=== PATIENT | female | born 1950 | race Caucasian/White ===

== ENCOUNTER 2021-04-09 11:39 | Observation (INO) | payer OTHER ==
--- NOTE | 2021-04-09 12:15 | RAD REPORT ---
EXAM DESCRIPTION: CT - Ct Stroke Brain Wo Cont - 04/09/2021 11:56 am CLINICAL HISTORY: SLURRED SPEECH COMPARISON: <Comparisons>none TECHNIQUE: Axial 5 millimeter thick images of the head were obtained without IV contrast. All CT scans are performed using dose optimization technique as appropriate and may include automated exposure control or mA/KV adjustment according to patient size. FINDINGS: No intracranial hemorrhage is present. In the superior right cerebellum there is a 2.6 jennifer timeter area diminished attenuation suspicious for infarction. There no mass effect in this region. N o other area of suspected acute/subacute infarction. Mild atrophy changes are present. Ventricles are in proportion to the amount of volume loss. No cerebral cortical edema or sulcal effacement. No midl ine shift. No extra-axial fluid collections. Rose matter-white matter differentiation is preserved i n the cerebral hemispheres. Arterial and physiologic calcifications are present. No globe or orbital content acute finding. Visualized portions of the mastoid air cells, paranasal sinuses, and orbits are unremarkable. Mastoid air cells are clear. Coastal thickening or retention cyst in the right maxillary sinus. No acute sin us finding identified. Findings telephoned to Dr Hernandez 12:11 p.m.. IMPRESSION: Nonhemorrhagic infarction changes are evident in the superior right cerebellum. No cerebral hemisphere infarction changes identifiable. No hemorrhage, mass effect or edema.
[2021-04-09 12:23] LABS: Absolute Lymphocytes (CBC) 1.7 K/uL (0.7-4.9); Basophils % 1.2 % (0-1.3); Hematocrit 39.5 % (36.0-45.0); Lymphocytes % 17.5 % (15.3-44.8); MPV 7.1 fL (7.6-11.3); RBC Red Blood Cell Count 4.37 M/uL (3.86-4.86)
[2021-04-09 12:26] LABS: Protime INR 1.04
[2021-04-09 12:32] LABS: BUN Blood Urea Nitrogen 10 mg/dL (7-18); Bicarbonate 28 mmol/L (21-32); Glucose Level 115 mg/dL (74-106); Sodium Level 140 mmol/L (136-145)
[2021-04-09] MEDS ORDERED: NA CHLORIDE 0.9% 1,000 ML ONE (12:42)
[2021-04-09] MEDS ORDERED: ASPIRIN 325 MG TAB ONE (12:42)
[2021-04-09] MEDS ORDERED: FOLIC ACID 5 MG/ML VIAL ONE (12:43)
[2021-04-09] MEDS ORDERED: CLOPIDOGREL 75 MG TABLET ONE (13:21)
[2021-04-09] MEDS ORDERED: ATORVASTATIN 80 MG TAB ONE (13:22)
[2021-04-09] MEDS ORDERED: ACETAMINOPHEN 325 MG TABLET ONE (13:29)
--- NOTE | 2021-04-09 13:40 | RAD REPORT ---
EXAM DESCRIPTION: RAD - Chest Single View - 04/09/2021 12:22 pm CLINICAL HISTORY: Strokechest film COMPARISON: None TECHNIQUE: AP portable chest image was obtained 04/09/2021 12:22 pm . FINDINGS: No focal mass or consolidation. Interstitial pattern is prominent most likely chronic base line interstitial disease. No significant failure or volume overload. Hilar regions within normal ran ge. Heart and vasculature are normal. No measurable pleural effusion and no pneumothorax. No acute leodan ny abnormality seen. No acute aortic findings suspected. IMPRESSION: No acute cardiopulmonary process.
--- NOTE | 2021-04-09 14:26 | RAD REPORT ---
EXAM DESCRIPTION: CT - Neck Angio - 04/09/2021 2:00 pm CLINICAL HISTORY: Slurred Speech, abnormal CT with evidence for right cerebellum CVA TECHNIQUE: During dynamic enhancement using nonionic IV contrast, axial 2 mm thick images of the nec k were obtained. Sagittal and axial reconstruction images were generated using MIP technique and revi ewed. All CT scans are performed using dose optimization technique as appropriate and may include automated exposure control or mA/KV adjustment according to patient size. COMPARISON: CT head same date, CT angio head same date FINDINGS: No aneurysm or vascular malformation identified. No carotid or vertebral dissection. No aortic arch or great vessel origin abnormality seen. Atherosclerotic changes are present without l uminal narrowing. Left vertebral artery origin is tortuous. From origin to skullbase there is no foca l narrowing. The left vertebral artery is dominant. Origin of the smaller right vertebral artery is o bscured by contrast density in the right-sided subclavian and neck base veins. Focal right vertebral abnormality is not suspected. The common carotid and internal carotid arteries from origin to skullba se show no stenosis, vasculitis or other acute finding. Distal vertebral arteries, basilar artery and distal internal carotid arteries detailed in separate C T angio head report. IMPRESSION: CT angio neck examination shows no significant or suspicious finding.
--- NOTE | 2021-04-09 14:34 | RAD REPORT ---
EXAM DESCRIPTION: CT - Head angio - 04/09/2021 2:00 pm CLINICAL HISTORY: SLURRED SPEECH, abnormal CT with evidence for right cerebellum CVA TECHNIQUE: During dynamic enhancement using nonionic IV contrast, axial 1 millimeter thick images of the head were obtained. Sagittal and axial reconstruction images were generated using MIP technique and reviewed. All CT scans are performed using dose optimization technique as appropriate and may include automated exposure control or mA/KV adjustment according to patient size. COMPARISON: CT head same date, CT angio neck same date FINDINGS: From skullbase determination the distal right internal carotid artery shows minimal ather osclerotic plaquing with no luminal narrowing or acute finding. Left internal carotid artery shows at herosclerotic change in the distal vertical petrous portion with approximately 40% stenosis. Addition al atherosclerotic calcifications are present but do not cause significant luminal narrowing. Anterior communicating artery is present. Anterior cerebral arteries show no significant findings. Ri ght middle cerebral artery shows no significant finding. Approximately 50% stenosis is present at the left MCA M1-M2 branch junction. Remainder of the left MCA distribution shows no measurable disease. Patient has bilateral large posterior communicating arteries. No significant atherosclerotic change i dentified in the posterior cerebral arteries. Left vertebral artery is dominant. Distal right vertebral artery is quite small. No dissection or acu te vertebral finding is identifiable. No superior cerebellar artery abnormalities identifiable. Basil ar artery tapers over its length. The bilateral P1 RAILROAD BRAKEMAN segments are absent as a normal variant. The d ominant bilateral posterior communicating arteries supply the RAILROAD BRAKEMAN circulation. Major venous sinuses are patent. IMPRESSION: CT angio head examination shows atherosclerotic changes with 40-50% stenosis in the lef t internal carotid artery and left middle cerebral artery, neither of which would be involved in the right cerebellum suspected CVA. No posterior circulation vascular abnormality seen to explain the suspected cerebellum CVA.
--- NOTE | 2021-04-09 14:49 | ER ---
Nurse's Notes [facility] Name: Karin Ayala Age: 71 yrs Sex: Female : 1950 Arrival Date: 04/09/2021 Time: 11:40 Bed 16 Private MD: Diagnosis: Cerebral infarction, unspecified Presentation: 04/09 11:50 Chief complaint: Patient states: went to bed last night at 9pm, woke up 0630 with iw slurred speech , felt numbness and pain in right arm and leg, was very dizzy and vomiting. Coronavirus screen: vomiting. Client presents with at least one sign or symptom that may indicate coronavirus-19. Ebola Screen: Patient negative for fever greater than or equal to 101.5 degrees Fahrenheit, and additional compatible Ebola Virus Disease symptoms Patient denies exposure to infectious person. Patient denies travel to an Ebola-affected area in the 21 days before illness onset. No symptoms or risks identified at this time. Initial Sepsis Screen: Does the patient meet any 2 criteria? No. Patient's initial sepsis screen is negative. Does the patient have a suspected source of infection? No. Patient's initial sepsis screen is negative. Risk Assessment: Do you want to hurt yourself or someone else? Patient reports no desire to harm self or others. Onset of symptoms. 11:50 Method Of Arrival: Wheelchair iw 11:50 Acuity: RUDDY 2 iw 11:53 The patients blood glucose was checked before arriving to the hospital and was found to iw be normal. Triage Assessment: 12:21 The onset of the patients symptoms was April 08, 2021 at 21:00. Headache History: jd3 Denies prior headaches. General: Appears uncomfortable, Behavior is calm, cooperative, appropriate for age. Pain: Complains of pain in head Pain at worst was 10 out of 10 on a pain scale. Pain began gradually, Also complains of no other associated symptoms. Neuro: Reports weakness in right arm and right leg slurred speach. Stroke Activation: Symptom onset > 6 hours Physician: Stroke Attending; Name: ; Notified At: ; Arrived At: Physician: Chief Stroke Resident; Name: ; Notified At: ; Arrived At: Physician: Stroke Resident; Name: ; Notified At: ; Arrived At: Physician: ED Attending; Name: ; Notified At: ; Arrived At: Physician: ED Resident; Name: ; Notified At: ; Arrived At: Historical: - Allergies: 11:54 No Known Allergies; iw - Home Meds: 11:54 None [Active]; iw - PMHx: 11:54 None; iw - PSHx: 11:54 shoulder; iw - Immunization history:: Client reports having NOT received the Covid vaccine. - Social history:: Smoking status: Patient reports the use of cigarette tobacco products, smokes one pack cigarettes per day. Screenin:21 Abuse screen: Denies threats or abuse. Nutritional screening: No deficits noted. jd3 Tuberculosis screening: No symptoms or risk factors identified. Fall Risk IV access (20 points). Ambulatory Aid- None/Bed Rest/Nurse Assist (0 pts). Gait- Normal/Bed Rest/Wheelchair (0 pts) Mental Status- Oriented to own ability (0 pts). Total Espinoza Fall Scale indicates No Risk (0-24 pts). Assessment: 11:45 VAN Scoring: Arm Drift: Patients demonstrates NO arm weakness. Patient is VAN Negative. jd3 Patient has been NPO before screening. The patient is alert, and able to follow commands. The patient exhibits slurred or garbled speech. Provider notified of the indication for Speech Therapy consult. The patient is not exhibiting difficulty speaking. The patient does not exhibit difficulty understanding words. The patient is able to swallow own secretions with no drooling or need for suction. Patient tolerated one teaspoon of water. No drooling, immediate coughing, gurgling, or clearing of the throat was noted. The patient tolerated 90mL of water. No drooling, immediate coughing, gurgling, or clearing of the throat was noted. The patient passed the bedside swallow screening. Oral medications may be given as ordered. Contact Physician for further diet orders. Provider notified of bedside swallow screening results: Anshul Perez [employer]. T-PA (Activase) Screening: Contraindications: Patient reports onset of signs and symptoms of stroke greater than 6 hours ago:. General: Appears uncomfortable, Behavior is calm, cooperative, appropriate for age. Pain: Complains of pain in head Quality of pain is described as aching, pressure. Neuro: Level of Consciousness is awake, alert, obeys commands, Oriented to person, place, time, situation, Filter Machine Operator are equal bilaterally Moves all extremities. Full function Speech is slurred, Facial symmetry appears normal, Pupils are PERRLA, Intact. Cardiovascular: Capillary refill < 3 seconds Patient's skin is warm and dry. Rhythm is regular. Respiratory: Airway is patent Respiratory effort is even, unlabored, Respiratory pattern is regular, symmetrical, Denies cough, shortness of breath. GI: No signs and/or symptoms were reported involving the gastrointestinal system. : No signs and/or symptoms were reported regarding the genitourinary system. EENT: No signs and/or symptoms were reported regarding the EENT system. Derm: Skin is intact, Skin is dry, Skin is normal, Skin temperature is warm. Musculoskeletal: Circulation, motion, and sensation intact. Range of motion: intact in all extremities. 12:50 Reassessment: No changes from previously documented assessment. Patient and/or family jd3 updated on plan of care and expected duration. Pain level reassessed. Patient is alert, oriented x 3, equal unlabored respirations, skin warm/dry/pink. 13:33 Reassessment: Patient and/or family updated on plan of care and expected duration. Pain jd3 level reassessed. Patient is alert, oriented x 3, equal unlabored respirations, skin warm/dry/pink. Patient states feeling better. 14:30 Reassessment: No changes from previously documented assessment. Patient and/or family jd3 updated on plan of care and expected duration. Pain level reassessed. Patient is alert, oriented x 3, equal unlabored respirations, skin warm/dry/pink. 15:19 Reassessment: No changes from previously documented assessment. Patient and/or family jd3 updated on plan of care and expected duration. Pain level reassessed. Patient is alert, oriented x 3, equal unlabored respirations, skin warm/dry/pink. Vital Signs: 11:53 BP 178 / 96; Pulse 86; Resp 20; Temp 98.2; Pulse Ox 94% ; jd3 12:51 BP 154 / 73; Pulse 89; Resp 19 S; Pulse Ox 97% on R/A; jd3 13:33 BP 175 / 67; Pulse 87; Resp 17 S; Pulse Ox 97% on R/A; jd3 15:20 BP 164 / 73; Pulse 85; Resp 17 S; Pulse Ox 98% on R/A; jd3 NIH Stroke Scale Scores: 11:45 NIHSS Score: 1 jd3 12:06 NIHSS Score: 1 pm1 15:15 NIHSS Score: 0 jd3 ED Course: 11:40 Patient arrived in ED. as 11:46 Gianfranco Lazo, LEVAR is Primary Nurse. jd3 11:50 Arm band placed on Patient placed in an exam room, on a stretcher. ll1 11:50 Inserted saline lock: 20 gauge in right antecubital area, using aseptic technique. jd3 Blood collected. 11:52 Anshul Perez NP is PHCP. pm1 11:52 Abdulaziz Hernandez MD is Attending Physician. pm1 11:53 Triage completed. iw 11:56 CT Stroke Brain w/o Contrast In Process Unspecified. EDMS 12:21 Patient has correct armband on for positive identification. Bed in low position. Call jd3 light in reach. Side rails up X2. Adult w/ patient. awake overnight monitor on. Pulse ox on. NIBP on. 12:22 Stroke CXR 1 View In Process Unspecified. EDMS 14:[address] In Process Unspecified. EDMS 14:00 CT Neck Angio In Process Unspecified. EDMS 14:48 Rebel Selby DO is Hospitalizing Provider. pm1 16:16 No provider procedures requiring assistance completed. Patient admitted, IV remains in jd3 place. Administered Medications: 12:49 Drug: foLIC Acid 1 mg Route: IVPB; Site: right antecubital; jd3 13:40 Follow up: Response: No adverse reaction; IV Status: Completed infusion jd3 12:50 Drug: Aspirin 325 mg Route: PO; jd3 13:50 Follow up: Response: No adverse reaction jd3 12:50 Drug: NS 0.9% 1000 ml Route: IV; Rate: 75 ml/hr; Site: right antecubital; jd3 16:15 Follow up: Response: No adverse reaction; IV Status: Infusion continued upon transfer jd3 13:25 Not Given (Physician Discretion): PlaVIX (clopidogrel) 75 mg PO once pm1 13:32 Drug: Atorvastatin 80 mg Route: PO; jd3 14:30 Follow up: Response: No adverse reaction jd3 13:32 Drug: Tylenol 650 mg Route: PO; jd3 14:30 Follow up: Response: No adverse reaction jd3 Point of Care Testing: Blood Glucose: 11:55 Blood Glucose: 107 mg/dL; iw Ranges: Outcome: 14:48 Decision to Hospitalize by Provider. pm1 16:16 Admitted to Med/surg accompanied by tech, via wheelchair, room 202, with chart, Report dominic called to nurse for room 202 16:16 Condition: stable 16:16 Instructed on the need for admit, Demonstrated understanding of instructions. 16:17 Patient left the ED. dominic NIH Stroke Scale - NIH Stroke Score Date: 04/09/2021 Time: 11:45 Total Score = 1 1a. Level of Consciousness (LOC) - 0(Alert) 1b. Level of Consciousness (LOC) (Month \T\ Age) - 0(Both) 1c. LOC Commands (Open \T\ Closes Eyes/Bail Bondsman) - 0(Both) 2. Best Gaze (Lateral Gaze Paresis) - 0(Normal) 3. Visual Field Loss - 0(No visual loss) 4. Facial Palsy - 0(Normal) 5a. Left Arm: Motor (10-second hold) - 0(No drift) 5b. Right Arm: Motor (10-second hold) - 0(No drift) 6a. Left Leg: Motor (5-second hold - always test supine) - 0(No drift) 6b. Right Leg: Motor (5-second hold - always test supine) - 0(No drift) 7. Limb Ataxia (finger/nose \T\ heel/gallegos - test with eyes open) - 0(Absent) 8. Sensory Loss (pinprick arms/legs/face) - 0(Normal) 9. Best Language: Aphasia (description/naming/reading) - 0(No aphasia) 10. Dysarthria (speech clarity - read or repeat words) - 1(Mild to Moderate) 11. Extinction and Inattention (visual/tactile/auditory/spatial/personal) - 0(No abnormality) Initials: dominic NIH Stroke Scale - NIH Stroke Score Date: 04/09/2021 Time: 12:06 Total Score = 1 1a. Level of Consciousness (LOC) - 0(Alert) 1b. Level of Consciousness (LOC) (Month \T\ Age) - 0(Both) 1c. LOC Commands (Open \T\ Closes Eyes/Bail Bondsman) - 0(Both) 2. Best Gaze (Lateral Gaze Paresis) - 0(Normal) 3. Visual Field Loss - 0(No visual loss) 4. Facial Palsy - 0(Normal) 5a. Left Arm: Motor (10-second hold) - 0(No drift) 5b. Right Arm: Motor (10-second hold) - 0(No drift) 6a. Left Leg: Motor (5-second hold - always test supine) - 0(No drift) 6b. Right Leg: Motor (5-second hold - always test supine) - 0(No drift) 7. Limb Ataxia (finger/nose \T\ heel/gallegos - test with eyes open) - 0(Absent) 8. Sensory Loss (pinprick arms/legs/face) - 0(Normal) 9. Best Language: Aphasia (description/naming/reading) - 0(No aphasia) 10. Dysarthria (speech clarity - read or repeat words) - 1(Mild to Moderate) 11. Extinction and Inattention (visual/tactile/auditory/spatial/personal) - 0(No abnormality) Initials: pm1 NIH Stroke Scale - NIH Stroke Score Date: 04/09/2021 Time: 15:15 Total Score = 0 1a. Level of Consciousness (LOC) - 0(Alert) 1b. Level of Consciousness (LOC) (Month \T\ Age) - 0(Both) 1c. LOC Commands (Open \T\ Closes Eyes/Bail Bondsman) - 0(Both) 2. Best Gaze (Lateral Gaze Paresis) - 0(Normal) 3. Visual Field Loss - 0(No visual loss) 4. Facial Palsy - 0(Normal) 5a. Left Arm: Motor (10-second hold) - 0(No drift) 5b. Right Arm: Motor (10-second hold) - 0(No drift) 6a. Left Leg: Motor (5-second hold - always test supine) - 0(No drift) 6b. Right Leg: Motor (5-second hold - always test supine) - 0(No drift) 7. Limb Ataxia (finger/nose \T\ heel/gallegos - test with eyes open) - 0(Absent) 8. Sensory Loss (pinprick arms/legs/face) - 0(Normal) 9. Best Language: Aphasia (description/naming/reading) - 0(No aphasia) 10. Dysarthria (speech clarity - read or repeat words) - 0(Normal) 11. Extinction and Inattention (visual/tactile/auditory/spatial/personal) - 0(No abnormality) Initials: jd3 Signatures: Dispatcher [employer] Loren Juárez Irene, RN RN iw Anshul Perez, GIRMA [employer] pm1 Gianfranco Lazo RN RN jd3 Alyssa Steele RN RN ll1 Corrections: (The following items were deleted from the chart) 12:30 12:14 Inserted saline lock: 20 gauge in right antecubital area, using aseptic jd3 technique. Blood collected. jd3 12:51 11:53 Pulse 86bpm; Resp 20bpm; Pulse Ox 94%; Temp 98.2F; iw jd3 12:51 11:45 General: Appears in no apparent distress. uncomfortable, Behavior is jd3 calm, cooperative, appropriate for age, jd3
--- NOTE | 2021-04-09 14:49 | EDPHYS ---
Physician Documentation [facility] Name: Karin Ayala Age: 71 yrs Sex: Female : 1950 Arrival Date: 04/09/2021 Time: 11:40 Bed 16 Private MD: ED Physician Abdulaziz Hernandez HPI: 04/09 12:06 This 71 yrs old Female presents to ER via Wheelchair with complaints of Headache, pm1 Slurred Speech, Vomit x 1, Numbness - r side. 12:06 The patient presents to the emergency department with a speech or higher order brain pm1 function problem, slurred speech, difficult walking, the patient is off balance, paresthesias of the right side. Onset: The symptoms/episode began/occurred this morning, at 06:00. 12:06 Context: occurred at home, occurred while the patient was was sleeping. Woke up with pm1 the symptoms, slurred speech, headache, and difficulty walking. Associated signs and symptoms: Pertinent negatives: fever, chest pain, shortness of breath. Severity of symptoms: in the emergency department the symptoms have improved. Patient's baseline: Neuro: alert and fully oriented, Motor: no deficits, Ambulation: walks without assistance, Speech: normal. Current symptoms: headache, slurred speech per son. The patient has not experienced similar symptoms in the past. The patient has not recently seen a physician, and does not have an established primary care provider. Patient woke up this AM at 0600 with slurred speech, headache, generalized weakness, right sided numbness, and difficulty walking. Patient went to bed last night at 2100 without any complaints or concerns. Historical: - Allergies: 11:54 No Known Allergies; iw - Home Meds: 11:54 None [Active]; iw - PMHx: 11:54 None; iw - PSHx: 11:54 shoulder; iw - Immunization history:: Client reports having NOT received the Covid vaccine. - Social history:: Smoking status: Patient reports the use of cigarette tobacco products, smokes one pack cigarettes per day. ROS: 12:06 Constitutional: Negative for fever, chills, and weight loss, Cardiovascular: Negative pm1 for chest pain, palpitations, and edema, Respiratory: Negative for shortness of breath, cough, wheezing, and pleuritic chest pain. 12:06 Back: Negative for injury and pain, MS/Extremity: Negative for injury and deformity, Skin: Negative for injury, rash, and discoloration. 12:06 Abdomen/GI: Positive for vomiting, x1, Negative for abdominal pain, nausea, diarrhea. 12:06 Neuro: Positive for headache, of the Right sided weakness, Negative for numbness, tingling. 12:06 All other systems are negative. Exam: 12:06 Constitutional: This is a well developed, well nourished patient who is awake, alert, pm1 and in no acute distress. Head/Face: Normocephalic, atraumatic. Eyes: Pupils equal round and reactive to light, extra-ocular motions intact. Lids and lashes normal. Conjunctiva and sclera are non-icteric and not injected. Cornea within normal limits. Periorbital areas with no swelling, redness, or edema. 12:06 Neck: Trachea midline, no thyromegaly or masses palpated, and no cervical lymphadenopathy. Supple, full range of motion without nuchal rigidity, or vertebral point tenderness. No Meningismus. 12:06 Back: No spinal tenderness. No costovertebral tenderness. Full range of motion. Skin: Warm, dry with normal turgor. Normal color with no rashes, no lesions, and no evidence of cellulitis. MS/ Extremity: Pulses equal, no cyanosis. Neurovascular intact. Full, normal range of motion. 12:06 ENT: Exam is negative for acute changes, Mouth: no acute changes, Lips: normal, moist, Oral mucosa: normal, pink and intact, moist. 12:06 Cardiovascular: Exam negative for acute changes, Rate: normal, Rhythm: regular, Pulses: no pulse deficits are appreciated, Edema: is not appreciated. 12:06 Respiratory: Exam negative for acute changes, respiratory distress, shortness of breath, Breath sounds: are clear throughout. 12:06 Neuro: Orientation: is normal, to person, place, time, situation, Mentation: is normal, Cerebellar function: normal finger to nose testing, Motor: moves all fours, strength is 5/5 in all extremities, Sensation: no obvious gross deficits. Vital Signs: 11:53 BP 178 / 96; Pulse 86; Resp 20; Temp 98.2; Pulse Ox 94% ; jd3 12:51 BP 154 / 73; Pulse 89; Resp 19 S; Pulse Ox 97% on R/A; jd3 13:33 BP 175 / 67; Pulse 87; Resp 17 S; Pulse Ox 97% on R/A; jd3 15:20 BP 164 / 73; Pulse 85; Resp 17 S; Pulse Ox 98% on R/A; jd3 NIH Stroke Scale Scores: 11:45 NIHSS Score: 1 jd3 12:06 NIHSS Score: 1 pm1 15:15 NIHSS Score: 0 jd3 MDM: 11:52 Patient medically screened. pm1 12:01 ED course: Not a TPA candidate due to unknown onset of symptoms. pm1 12:28 Data reviewed: vital signs. pm1 12:36 Counseling: I had a detailed discussion with the patient and/or guardian regarding: the pm1 historical points, exam findings, and any diagnostic results supporting the discharge/admit diagnosis, radiology results, the need for further work-up and treatment in the hospital. 12:50 Physician consultation: Ayden Altman MD was called at 12:28, regarding consult, pm1 patient's condition, and will see patient tomorrow, would like further tests performed, MRI, would like medications started, Aspirin, Plavix, statin. 13:13 Physician consultation: Rebel Selby DO was contacted at 13:13, regarding admission, pm1 patient's condition, would like further tests performed, CTA head. 04/09 11:51 Order name: Basic Metabolic Panel; Complete Time: 15:11 eb 04/09 11:51 Order name: CBC with Diff; Complete Time: 12:30 eb 04/09 11:51 Order name: Protime (+inr); Complete Time: 12:30 eb 04/09 11:51 Order name: Ptt, Activated; Complete Time: 12:30 eb 04/09 12:01 Order name: Glucose, Ancillary Testing; Complete Time: 12:06 EDMS 04/09 12:05 Order name: Troponin (emerg Dept Use Only) pm1 04/09 11:51 Order name: CT Stroke Brain w/o Contrast; Complete Time: 12:23 eb 04/09 11:51 Order name: Stroke CXR 1 View; Complete Time: 13:54 eb 04/09 13:13 Order name: Head Angio CT; Complete Time: 14:40 pm1 04/09 13:24 Order name: CT Neck Angio; Complete Time: 14:40 pm1 04/09 14:34 Order name: Troponin I; Complete Time: 15:11 EDMS 04/09 14:37 Order name: SARS-COV-2 RT PCR; Complete Time: 16:37 EDMS 04/09 11:51 Order name: EKG; Complete Time: 11:52 eb 04/09 11:51 Order name: Accucheck; Complete Time: 12:14 eb 04/09 11:51 Order name: Cardiac monitoring; Complete Time: 12:14 eb 04/09 11:51 Order name: EKG - Nurse/Tech; Complete Time: 12:14 eb 04/09 11:51 Order name: IV Saline Lock; Complete Time: 12:14 eb 04/09 11:51 Order name: Labs collected and sent; Complete Time: 12:14 eb 04/09 11:51 Order name: NPO; Complete Time: 12:14 eb 04/09 11:51 Order name: O2 Per Protocol; Complete Time: 12:14 eb 04/09 11:51 Order name: O2 Sat Monitoring; Complete Time: 12:14 eb 04/09 11:51 Order name: Stroke Swallow Screen; Complete Time: 12:14 eb Administered Medications: 12:49 Drug: foLIC Acid 1 mg Route: IVPB; Site: right antecubital; jd3 13:40 Follow up: Response: No adverse reaction; IV Status: Completed infusion jd3 12:50 Drug: Aspirin 325 mg Route: PO; jd3 13:50 Follow up: Response: No adverse reaction jd3 12:50 Drug: NS 0.9% 1000 ml Route: IV; Rate: 75 ml/hr; Site: right antecubital; jd3 16:15 Follow up: Response: No adverse reaction; IV Status: Infusion continued upon transfer jd3 13:25 Not Given (Physician Discretion): PlaVIX (clopidogrel) 75 mg PO once pm1 13:32 Drug: Atorvastatin 80 mg Route: PO; jd3 14:30 Follow up: Response: No adverse reaction jd3 13:32 Drug: Tylenol 650 mg Route: PO; jd3 14:30 Follow up: Response: No adverse reaction jd3 Point of Care Testing: Blood Glucose: 11:55 Blood Glucose: 107 mg/dL; iw Ranges: Critical Glucose Levels:Adult <50 mg/dl or >400 mg/dl <40 mg/dl or >180 mg/dl Disposition: 18:09 Co-signature as Attending Physician, Abdulaziz Hernandez MD PA/DIRECTOR DRUG's history reviewed, ma2 patient interviewed, and examined. Disposition Summary: 04/09/21 14:48 Hospitalization Ordered Hospitalization Status: Observation pm1 Provider: Rebel Selby pm1 Location: Telemetry/MedSurg (observation) pm1 Condition: Stable pm1 Problem: new pm1 Symptoms: have improved pm1 Bed/Room Type: Standard pm1 Room Assignment: (04/09/21 15:44) eb Diagnosis - Cerebral infarction, unspecified pm1 Forms: - Medication Reconciliation Form pm1 - SBAR form pm1 NIH Stroke Scale - NIH Stroke Score Date: 04/09/2021 Time: 11:45 Total Score = 1 1a. Level of Consciousness (LOC) - 0(Alert) 1b. Level of Consciousness (LOC) (Month \T\ Age) - 0(Both) 1c. LOC Commands (Open \T\ Closes Eyes/Interface Engineer) - 0(Both) 2. Best Gaze (Lateral Gaze Paresis) - 0(Normal) 3. Visual Field Loss - 0(No visual loss) 4. Facial Palsy - 0(Normal) 5a. Left Arm: Motor (10-second hold) - 0(No drift) 5b. Right Arm: Motor (10-second hold) - 0(No drift) 6a. Left Leg: Motor (5-second hold - always test supine) - 0(No drift) 6b. Right Leg: Motor (5-second hold - always test supine) - 0(No drift) 7. Limb Ataxia (finger/nose \T\ heel/gallegos - test with eyes open) - 0(Absent) 8. Sensory Loss (pinprick arms/legs/face) - 0(Normal) 9. Best Language: Aphasia (description/naming/reading) - 0(No aphasia) 10. Dysarthria (speech clarity - read or repeat words) - 1(Mild to Moderate) 11. Extinction and Inattention (visual/tactile/auditory/spatial/personal) - 0(No abnormality) Initials: jd3 NIH Stroke Scale - NIH Stroke Score Date: 04/09/2021 Time: 12:06 Total Score = 1 1a. Level of Consciousness (LOC) - 0(Alert) 1b. Level of Consciousness (LOC) (Month \T\ Age) - 0(Both) 1c. LOC Commands (Open \T\ Closes Eyes/Interface Engineer) - 0(Both) 2. Best Gaze (Lateral Gaze Paresis) - 0(Normal) 3. Visual Field Loss - 0(No visual loss) 4. Facial Palsy - 0(Normal) 5a. Left Arm: Motor (10-second hold) - 0(No drift) 5b. Right Arm: Motor (10-second hold) - 0(No drift) 6a. Left Leg: Motor (5-second hold - always test supine) - 0(No drift) 6b. Right Leg: Motor (5-second hold - always test supine) - 0(No drift) 7. Limb Ataxia (finger/nose \T\ heel/gallegos - test with eyes open) - 0(Absent) 8. Sensory Loss (pinprick arms/legs/face) - 0(Normal) 9. Best Language: Aphasia (description/naming/reading) - 0(No aphasia) 10. Dysarthria (speech clarity - read or repeat words) - 1(Mild to Moderate) 11. Extinction and Inattention (visual/tactile/auditory/spatial/personal) - 0(No abnormality) Initials: pm1 NIH Stroke Scale - NIH Stroke Score Date: 04/09/2021 Time: 15:15 Total Score = 0 1a. Level of Consciousness (LOC) - 0(Alert) 1b. Level of Consciousness (LOC) (Month \T\ Age) - 0(Both) 1c. LOC Commands (Open \T\ Closes Eyes/Interface Engineer) - 0(Both) 2. Best Gaze (Lateral Gaze Paresis) - 0(Normal) 3. Visual Field Loss - 0(No visual loss) 4. Facial Palsy - 0(Normal) 5a. Left Arm: Motor (10-second hold) - 0(No drift) 5b. Right Arm: Motor (10-second hold) - 0(No drift) 6a. Left Leg: Motor (5-second hold - always test supine) - 0(No drift) 6b. Right Leg: Motor (5-second hold - always test supine) - 0(No drift) 7. Limb Ataxia (finger/nose \T\ heel/gallegos - test with eyes open) - 0(Absent) 8. Sensory Loss (pinprick arms/legs/face) - 0(Normal) 9. Best Language: Aphasia (description/naming/reading) - 0(No aphasia) 10. Dysarthria (speech clarity - read or repeat words) - 0(Normal) 11. Extinction and Inattention (visual/tactile/auditory/spatial/personal) - 0(No abnormality) Initials: jd3 Signatures: Dispatcher [employer] EDMS Bibiana Burrell RN RN iw Anshul Perez, DIRECTOR DRUG DIRECTOR DRUG pm1 Gianfranco Lazo RN RN jd3 Abdulaziz Hernandez MD MD ok2 Cindy Borges Corrections: (The following items were deleted from the chart) 14:13 12:06 The patient presents to the emergency department with a speech or higher pm1 order brain function problem, slurred speech, pm1 14:34 12:06 Troponin (Emerg Dept Use Only) ordered. EDMS EDMS 14:37 14:09 CORONAVIRUS+[email or web address] ordered. EDMS EDMS 15:44 14:48 pm1 eb
[2021-04-09 14:59] LABS: Troponin I < 0.02 ng/mL (0.0-0.045)
--- NOTE | 2021-04-09 15:52 | P.HP ---
Certification for Inpatient Patient admitted to: Observation Patient will require the following post-hospital care: Other (Home health with PT) Practitioner: I am a practitioner with admitting privileges, knowledge of patient current condition, hospital course, and medical plan of care. Services: Services provided to patient in accordance with Admission requirements found in Title 42 Section 412.3 of the Code of Federal Regulations Patient History Date of Service: 04/09/21 Primary Care Provider: None Reason for admission: Slurred speech, ataxia and dizziness History of Present Illness: 71-year-old female with history of tobacco abuse with no prior major medical problems. Patient presented to the emergency room with dizziness, headaches and slurred speech. Patient reports that she was normal at 9 PM last night when she went to bed. She woke up around 630 this morning. She reported some dizziness, headaches and slurred speech. She went back to bed and woke up around 1030. She continued to have some difficulty with walking. Patient came to the ER for further evaluation. In the ER patient was evaluated. CT scan revealed right superior cerebellar nonhemorrhagic CVA. CBC unremarkable. BMP reviewed. Troponin unremarkable. Chest x-ray unremarkable. ER discussed case with neurology. Recommendation was for the patient to be admitted for further evaluation. When I saw the patient in ER, patient was able to talk appropriately. No significant dysarthria noted. She reported headaches improved. She denied any nausea, vomiting, chest pain or shortness of breath. Patient does smoke heavily. Patient does not take aspirin. Home medications list reviewed: Yes - Past Medical/Surgical History Diabetic: No -: Chronic right shoulder pain -: Tobacco abuse -: Right shoulder repair -: Right hand surgery -: Carpal tunnel surgery Psychosocial/ Personal History: Patient is - Family History Family History: Reviewed- Non-Contributory - Social History Smoking Status: Heavy Tobacco smoker (>10 cigarettes/day) Counseled patient to stop smoking for: less than 10 minutes Smoking therapy provided: Yes Patient receptive to therapy: Yes Alcohol use: No CD- Drugs: No Caffeine use: No Place of Residence: Home Review of Systems General: As per HPI Eyes: Unremarkable ENT: Unremarkable Respiratory: Unremarkable Cardiovascular: Light Headedness, As per HPI Gastrointestinal: Unremarkable Genitourinary: Unremarkable Musculoskeletal: Unremarkable Integumentary: Unremarkable Neurological: As per HPI Lymphatics: Unremarkable Physical Examination - Studies Laboratory Data (last 24 hrs) 04/09/21 12:09: PT 12.0, INR 1.04, APTT 31.1 04/09/21 12:09: WBC 9.50, Hgb 13.3, Hct 39.5, Plt Count 370 04/09/21 12:09: Sodium 140, Potassium 4.0, BUN 10, Creatinine 0.54 L, Glucose 115 H, Troponin I < 0.02 Assessment and Plan - Plan COVID: Negative CT Head: COMPARISON: <Comparisons>none TECHNIQUE: Axial 5 millimeter thick images of the head were obtained without IV contrast. All CT scans are performed using dose optimization technique as appropriate and may include automated exposure control or mA/KV adjustment according to patient size. FINDINGS: No intracranial hemorrhage is present. In the superior right cerebellum there is a 2.6 centimeter area diminished attenuation suspicious for infarction. There no mass effect in this region. No other area of suspected acute/subacute infarction. Mild atrophy changes are present. Ventricles are in proportion to the amount of volume loss. No cerebral cortical edema or sulcal effacement. No midline shift. No extra-axial fluid collections. Rose matter- white matter differentiation is preserved in the cerebral hemispheres. Arterial and physiologic calcifications are present. No globe or orbital content acute finding. Visualized portions of the mastoid air cells, paranasal sinuses, and orbits are unremarkable. Mastoid air cells are clear. Coastal thickening or retention cyst in the right maxillary sinus. No acute sinus finding identified. IMPRESSION: Nonhemorrhagic infarction changes are evident in the superior right cerebellum. No cerebral hemisphere infarction changes identifiable. No hemorrhage, mass effect or edema. CTA Head: COMPARISON: CT head same date, CT angio neck same date FINDINGS: From skullbase determination the distal right internal carotid artery shows minimal atherosclerotic plaquing with no luminal narrowing or acute finding. Left internal carotid artery shows atherosclerotic change in the distal vertical petrous portion with approximately 40% stenosis. Additional atherosclerotic calcifications are present but do not cause significant luminal narrowing. Anterior communicating artery is present. Anterior cerebral arteries show no significant findings. Right middle cerebral artery shows no significant finding. Approximately 50% stenosis is present at the left MCA M1-M2 branch junction. Remainder of the left MCA distribution shows no measurable disease. Patient has bilateral large posterior communicating arteries. No significant atherosclerotic change identified in the posterior cerebral arteries. Left vertebral artery is dominant. Distal right vertebral artery is quite small. No dissection or acute vertebral finding is identifiable. No superior cerebellar artery abnormalities identifiable. Basilar artery tapers over its length. The bilateral P1 FUR MATCHER segments are absent as a normal variant. The dominant bilateral posterior communicating arteries supply the FUR MATCHER circulation. Major venous sinuses are patent. IMPRESSION: CT angio head examination shows atherosclerotic changes with 40- 50% stenosis in the left internal carotid artery and left middle cerebral artery, neither of which would be involved in the right cerebellum suspected CVA. No posterior circulation vascular abnormality seen to explain the suspected cerebellum CVA. CTA Neck: COMPARISON: CT head same date, CT angio head same date FINDINGS: No aneurysm or vascular malformation identified. No carotid or vertebral dissection. No aortic arch or great vessel origin abnormality seen. Atherosclerotic changes are present without luminal narrowing. Left vertebral artery origin is tortuous. From origin to skullbase there is no focal narrowing. The left vertebral artery is dominant. Origin of the smaller right vertebral artery is obscured by contrast density in the right-sided subclavian and neck base veins. Focal right vertebral abnormality is not suspected. The common carotid and internal carotid arteries from origin to skullbase show no stenosis, vasculitis or other acute finding. Distal vertebral arteries, basilar artery and distal internal carotid arteries detailed in separate CT angio head report. IMPRESSION: CT angio neck examination shows no significant or suspicious finding. CXR: COMPARISON: None TECHNIQUE: AP portable chest image was obtained 04/09/2021 12:22 pm . FINDINGS: No focal mass or consolidation. Interstitial pattern is prominent most likely chronic baseline interstitial disease. No significant failure or volume overload. Hilar regions within normal range. Heart and vasculature are normal. No measurable pleural effusion and no pneumothorax. No acute bony abnormality seen. No acute aortic findings suspected. IMPRESSION: No acute cardiopulmonary process. Physical Exam: GENERAL: The patient is a well-developed, well-nourished, in no apparent distress. Alert and oriented x3. VITAL SIGNS: Reviewed HEENT: Head is normocephalic and atraumatic. Extraocular muscles are intact. Pupils are equal, round, and reactive to light and accommodation. Nares appeared normal. Mouth is well hydrated and without lesions. Mucous membranes are moist. Patient was able to talk appropriately. No significant dysarthria. NECK: Supple. No carotid bruits. No lymphadenopathy or thyromegaly. LUNGS: Clear to auscultation. No crackles or wheezes are heard. HEART: Regular rate and rhythm, no appreciable gallops, rubs, murmurs or extra heart sounds ABDOMEN: Soft, nontender, and nondistended. Positive bowel sounds. No hepatosplenomegaly was noted. EXTREMITIES: Without any cyanosis, clubbing, rash, lesions or peripheral edema. NEUROLOGIC: The patient is oriented to person, place and time. Strength and sensation are grossly intact. Face is symmetric. SKIN: Normal color, turgor and temperature. No ulcerations or rashes noted. 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 Case discussed with neurology. Will start aspirin 81 mg daily, folic acid 1 mg daily, and Lipitor 40 mg daily. Blood pressure stable. Will obtain echocardiogram, carotid Doppler and stroke protocol MRI to further evaluate. DVT prophylaxisLovenox in place. Speech, occupational therapy, and physical therapy consulted. Await recommendations. Patient appears close to baseline. Anticipate improvement over the next 24 hours. Likely home with home health and physical therapy at discharge. Social work consulted to help with this. Nurses to evaluate swallowing. If successful will start [place] [employer] diet. I will turn the service over to the hospitalist team tomorrow. I will go plan of care with him. Tobacco abuse: Tobacco cessation addressed in detail. Will provide nicotine patch. Suspect underlying COPD: Suspect underlying COPD. Will start Dulera and albuterol. This can be continued at discharge. Hyperlipidemia: We will check fasting lipid panel. We will start Lipitor 40 mg in light of CVA. Carotid arterial disease with 40 to 50% stenosis to the left internal carotid artery and left middle cerebral artery: We will continue with above plan of care. Await stroke protocol MRI and carotid Doppler. Code Status: Full Code DVT prophylaxis: Lovenox Advanced Care Planning-30 minutes: Spoke with patient and son. If patient is doing well they would prefer home health and physical therapy at discharge. Discharge Plan: Home Plan to discharge in: 48 Hours - Advance Directives Does patient have a Living Will: No Does patient have a Durable POA for Healthcare: No - Code Status/Comfort Care Code Status Assessed: Yes (Patient is full code) Time Spent Managing Pts Care (In Minutes): 55
[2021-04-09] MEDS ORDERED: IPRATROPIUM BROM 0.5MG/2.5ML NEB PRN (17:27)
[2021-04-09] MEDS ORDERED: ONDANSETRON 4 MG/2 ML VIAL IV PRN (17:27)
[2021-04-09] MEDS ORDERED: ALBUTEROL 2.5 MG/3 ML NEB SOL NEB PRN (17:27)
[2021-04-09] MEDS: ACETAMINOPHEN 500 MG TAB PO PRN (17:31)
[2021-04-09 18:04] VITALS: BMI 26.6
[2021-04-09] MEDS: FAMOTIDINE 20 MG TAB PO SCH (19:54)
[2021-04-09] MEDS: D5 0.9 NS 1,000 ML IV SCH (19:54)
[2021-04-09] MEDS: DULERA 100/5 (MOMETASONE/FORMOTEROL) INHALER IH SCH (19:58)
[2021-04-09] MEDS ORDERED: ATORVASTATIN 40 MG TAB PO SCH (21:00)
[2021-04-10] MEDS: ACETAMINOPHEN 500 MG TAB PO PRN (04:05)
[2021-04-10 06:00] LABS: Absolute Lymphocytes (CBC) 2.1 K/uL (0.7-4.9); Basophils % 0.9 % (0-1.3); Hematocrit 36.2 % (36.0-45.0); Lymphocytes % 22.5 % (15.3-44.8); MPV 7.1 fL (7.6-11.3); RBC Red Blood Cell Count 3.99 M/uL (3.86-4.86)
[2021-04-10 06:33] LABS: BUN Blood Urea Nitrogen 7 mg/dL (7-18); Bicarbonate 27 mmol/L (21-32); Glucose Level 101 mg/dL (74-106); HDL Cholesterol 49 mg/dL (40-60); LDL Cholesterol, Calculated 110 (<130); Magnesium 2.2 mg/dL (1.8-2.4); Potassium 3.7 mmol/L (3.5-5.1); Sodium Level 142 mmol/L (136-145); Thyroid Stimulating Hormone 0.854 uIU/mL (0.360-3.740)
--- NOTE | 2021-04-10 07:36 | RAD REPORT ---
EXAM DESCRIPTION: USCarotid Artery Ywpoydbax50/12/2021 11:20 pm CLINICAL HISTORY: CVA FINDINGS: The velocity of the right internal carotid artery equals 98 cm/sec. The right ICA/CCA rati o 1.3 The velocity of the left internal carotid artery equals 95 cm/sec. The left ICA/CCA ratio 1.2 Mild plaque is present within the carotid arteries. The vertebral arteries demonstrate antegrade flow IMPRESSION: Mild plaque within the carotid arteries without evidence of a hemodynamically significan t stenosis NASCET criteria used. Mild 0-49% stenosis Moderate 50-69% stenosis Severe 70-99% stenosis
[2021-04-10] MEDS ORDERED: INFLUENZA VACCINE (for 6+ mo) 0.5 ML DOSE IMVAC ONE (08:00)
[2021-04-10] MEDS ORDERED: PNEUMOCOCCAL VACCINE 0.5 ML IMVAC ONE (08:00)
[2021-04-10] MEDS: FAMOTIDINE 20 MG TAB PO SCH (08:42)
[2021-04-10] MEDS: DULERA 100/5 (MOMETASONE/FORMOTEROL) INHALER IH SCH (08:43)
--- NOTE | 2021-04-10 08:45 | RAD REPORT ---
EXAM DESCRIPTION: MRI - MRA Neck W/Wo Cont - 04/10/2021 8:20 am CLINICAL HISTORY: Slurred speech COMPARISON: CT angiogram neck April 09, 2021 TECHNIQUE: Magnetic resonance angiogram of the neck was performed. 19 cc MultiHance was administered intravenously. 3D MIPS reconstruction performed FINDINGS: Mild plaque is present within common carotid, internal carotid and external carotid arteri es bilaterally. Portions of the right vertebral artery are hypoplastic. No significant abnormality vertebral arteries seen IMPRESSION: Mild plaque within the carotid arteries. NASCET criteria used. Mild 0-49% stenosis Moderate 50-69% stenosis Severe 70-99% stenosis
--- NOTE | 2021-04-10 08:48 | RAD REPORT ---
EXAM DESCRIPTION: MRI - MRA Head Wo Cont - 04/10/2021 8:38 am CLINICAL HISTORY: Slurred speech COMPARISON: CT angiogram head April 09, 2021 TECHNIQUE: Magnetic resonance angiogram was performed. 3D MIPS reconstruction performed FINDINGS: The A1 segment left anterior cerebral artery is hypoplastic. origin of the posterior cerebral arteries. Mild narrowing involves the distal left internal carotid artery. Remainder of the anterior cerebral, middle cerebral and posterior cerebral arteries appear unremarkab le. An aneurysm is not displayed. IMPRESSION: Mild narrowing of the distal left internal carotid artery presumably chronic
--- NOTE | 2021-04-10 08:49 | RAD REPORT ---
EXAM DESCRIPTION: MRI - Brain W/Wo Cont - 04/10/2021 8:21 am CLINICAL HISTORY: Slurred speech COMPARISON: head CT April 09 2021 TECHNIQUE: Axial, sagittal, and coronal magnetic images of the brain were obtained. Fourteen cc Mult iHance administered intravenously FINDINGS: Mild signal within periventricular, deep and subcortical white matter probably ischemic c hanges secondary to small vessel disease The ventricles are normal in caliber. Diffusion-weighted/ ADC mapping sequences demonstrate a 3.7 centimeter acute infarction involving the right cerebellar hemisphere extending into the vermis. No abnormal enhancement within the brain is seen. An extra-axial fluid collection is not noted. Fluid within the sinuses/mastoids is not seen IMPRESSION: Acute right cerebellar infarction
[2021-04-10] MEDS ORDERED: FOLIC ACID 1 MG TABLET PO SCH (09:00)
[2021-04-10] MEDS ORDERED: POTASSIUM CL SA 10 MEQ TAB PO ONE (09:00)
[2021-04-10] MEDS ORDERED: ASPIRIN EC 81 MG TAB PO SCH (09:00)
[2021-04-10] MEDS ORDERED: THIAMINE HCL 100 MG TABLET PO SCH (09:00)
[2021-04-10] MEDS ORDERED: ENOXAPARIN 40 MG/0.4 ML SQ SCH (09:00)
[2021-04-10] MEDS ORDERED: NICOTINE 21 MG/PAT TD SCH (09:00)
[2021-04-10 09:25] VITALS: O2SAT 99
[2021-04-10 12:15] VITALS: BP 157/70; TEMP 97.9
[2021-04-10] MEDS: D5 0.9 NS 1,000 ML IV SCH (13:27)
--- NOTE | 2021-04-10 14:02 | ECHO ---
HEIGHT: 5 ft 0 in WEIGHT: 136 lb 4 oz DATE OF STUDY: 04/10/[address]: Rebel Selby DO 2-DIMENSIONAL: YES M.MODE: YES DOPPLER: YES COLOR FLOW: YES TDS: NO PORTABLE: NO DEFINITY: NO BUBBLE STUDY: NO DIAGNOSIS: CEREBRAL VASCULAR ACCIDENT CARDIAC HISTORY: CATHERIZATION: SURGERY: PROSTHETIC VALVE: PACEMAKER: MEASUREMENTS (cm) DIASTOLIC (NORMALS) SYSTOLIC (NORMALS) IVSd 0.9 (0.6-1.2) LA Diam 3.1 (1.9-4.0) LVEF 66% LVIDd 4.5 (3.5-5.7) LVIDs 2.9 (2.0-3.5) %FS 36% LVPWd 1.0 (0.6-1.2) Ao Diam 2.6 (2.0-3.7) 2 DIMENSIONAL ASSESSMENT: RIGHT ATRIUM: NORMAL LEFT ATRIUM: NORMAL RIGHT VENTRICLE: NORMAL LEFT VENTRICLE: NORMAL TRICUSPID VALVE: MILD TRICUSPID REGURGITATION MITRAL VALVE: MILD MITRAL REGURGITATION PULMONIC VALVE: NORMAL AORTIC VALVE: NORMAL PERICARDIAL EFFUSION: NONE AORTIC ROOT: NORMAL LEFT VENTRICULAR WALL MOTION: NORMAL. DOPPLER/COLOR FLOW: SEE BELOW. COMMENTS: NORMAL LEFT VENTRICULAR EJECTION FRACTION 60-65% WITH NORMAL WALL MOTION. MILD MITRAL AND TRICUSPID REGURGITATION. TECHNOLOGIST: ROBINSON WAGNER
--- NOTE | 2021-04-10 19:33 | CON ---
Reason For Consultation: Consultation called because of stroke. History Of Present Illness: Ms. Ayala is a 71-year-old right-handed patient with a long hi story of smoking up to 2 packs cigarettes a day since age 17 and who was not been seeing a doctor [place]. Last visit was over 12 years ago. She developed sudden-onset dizziness, headaches, slurred speech and difficulty of moving the right arm and leg. The event was noted actually on awakening anamaria und 6:30 in the morning on 04/09/2021. She went to bed normally. She went back to bed then around 1 0:30 and difficulty did not resolve. She came to [facility] and arrived in the emergency ro om at 11:40, which is well out of the window for tPA. Her brain CT scan, which was at 1156, identifi ed nonhemorrhagic infarct changes in superior right cerebellum. Since onset, her episodes have actua lly improved significantly. She has less slurred speech, less incoordination in the right upper and lower extremity and improved balance and coordination. Her head CT angiogram identified 42% stenosis in the left internal carotid artery and left middle cerebral artery, but it is not a distribution of her stroke. Her CT angiogram of the neck showed no evidence of obstruction, nor any significant abn ormalities. Brain MRI confirmed the presence of a 3.5 cm acute infarct involving the right cerebellu m and hemisphere including the vermis. No hemorrhagic conversion. MRA of the head and neck again sh owed mild narrowing of the distal left internal carotid artery, which is presumed to be chronic and n o other issues. Echocardiogram showed ejection fraction of 66% with mild mitral and tricuspid regurg itation. Her complete blood count with differential is essentially normal. Coagulation panel normal . Chemistries did show glucose ranging up to 115, creatinine 0.49. Rest of electrolytes unremarkabl e. Thyroid-stimulating hormone normal. LDL cholesterol 110, HDL 49, TSH 0.854. COVID-19 test was n egative. She was put on aspirin 81 mg daily, given IV hydration and admitted. She was evaluated by Speech Therapy and found to be without any difficulty such as aspiration risk or swallowing difficult y. Speech can have them largely resolved. At the time of my evaluation, she had no obvious noticeab le deficits despite her stroke. NIH stroke scale at this point was 0. Past Medical History: As noted. Past Surgical History: Right shoulder repair, right hand surgery, carpal tunnel surgery. Family History: Noncontributory. Social History: At least a pack of cigarettes daily since age 17, now she is 71. Allergies: NO KNOWN DRUG ALLERGIES. Medications: Now her medications are aspirin 81 mg daily, Lipitor 40 mg at bedtime, Pepcid 10 mg twi ce daily, folic acid 1 mg daily. She has nicotine patch, potassium replacement, thiamine 100 mg juanpablo y, and multivitamin 1 daily. Family History: Noncontributory. Review of Systems: She denies any recent fevers, chills, nausea, vomiting, myalgias, arthralgias, headache, weight glover e, rash or psychiatric complaints, gastrointestinal or genitourinary issues. Physical Examination: Vital Signs: Blood pressure 157/70, pulse 70, respiratory rate 16, on room air. Weight 1 36 pounds, height 5 feet, BMI 26.6. GENERAL: Ms. Ayala is resting in bed. She is able to sit at side of the bed. She is in no acute di stress. HEENT: She is normocephalic, atraumatic. Sclerae anicteric. Oropharynx is pink and moist. Neck: Supple. Chest: Clear. Heart: Regular. EXTREMITIES: Show no edema, cyanosis, or clubbing. NEUROLOGICAL: She is alert and oriented to person, place, and situation. Her cranial nerves show no deficits despite her strokes. Coordination in the upper and lower extremities intact. Perhaps subt le dysdiadochokinesis noted in the right upper extremity on [id number] and [id number]. Her sen osiris exam intact in upper and lower extremities bilaterally. Gait, she has good stance in right arm showing very subtle difficulty with right tandem gait. Mild tendency to fall to the right, otherwise intact. Assessment: Ms. Ayala is a 71-year-old patient with right cerebellar stroke, likely related to hyper tension and chronic cigarette smoking. She has recovered very well and may require some mild outpati ent physical therapy. Plan: Aspirin, Plavix, folic acid, nicotine patch, and stop smoking. She may be discharged at this point with outpatient physical therapy for balance and recovery and fol low up in Dr. Altman's clinic 1 month later. She was strongly encouraged to stop smoking cigarette s. LB/MODL Voice ID: [id number] Report ID: [id number]
[2021-04-10] MEDS ORDERED: ATORVASTATIN 40 MG TAB PO SCH (21:00)
--- NOTE | 2021-04-12 07:50 | P.DS ---
Discharge Date: 04/10/21 Primary Care Provider: Lisa Disposition: ROUTINE DISCHARGE Discharge Condition: GOOD Reason for Admission: Slurred speech, ataxia and dizziness Consultations: Neurology Brief History of Present Illness: Patient is a 71-year-old female with history of tobacco abuse with no prior major medical problems. Patient presented to the emergency room with dizziness, headaches and slurred speech. Patient reports that she was normal at 9 PM last night when she went to bed. She woke up around 630 this morning. She reported some dizziness, headaches and slurred speech. She went back to bed and woke up around 1030. She continued to have some difficulty with walking. Patient came to the ER for further evaluation. In the ER patient was evaluated. CT scan revealed right superior cerebellar nonhemorrhagic CVA. CBC unremarkable. BMP reviewed. Troponin unremarkable. Chest x-ray unremarkable. ER discussed case with neurology. Recommendation was for the patient to be admitted for further evaluation. When I saw the patient in ER, patient was able to talk appropriately. No significant dysarthria noted. She reported headaches improved. She denied any nausea, vomiting, chest pain or shortness of breath. Patient does smoke heavily. Patient does not take aspirin. Hospital Course: Patient's workup was unremarkable. Patient does have a cerebellar infarct. However, there is not a lot a clinical symptoms. Patient continue with anti- platelet therapy. We will continue with statin therapy. Patient will need to continue with Neurology follow-up. At this time, patient is stable for discharge. Vital Signs/Physical Exam: Temp Pulse Resp BP Pulse Ox 97.9 F 70 16 157/70 H 96 04/10/21 12:14 04/10/21 12:14 04/10/21 12:14 04/10/21 12:14 04/10/21 12:14 General: Alert, In no apparent distress, Oriented x3 Laboratory Data at Discharge: WBC 9.30 K/uL (4.3-10.9) 04/10/21 05:28 Hgb 12.1 g/dL (12.0-15.0) 04/10/21 05:28 Hct 36.2 % (36.0-45.0) 04/10/21 05:28 Plt Count 327 K/uL (152-406) 04/10/21 05:28 PT 12.0 SECONDS (9.5-12.5) 04/09/21 12:09 INR 1.04 04/09/21 12:09 APTT 31.1 SECONDS (24.3-36.9) 04/09/21 12:09 Sodium 142 mmol/L (136-145) 04/10/21 05:28 Potassium 3.7 mmol/L (3.5-5.1) 04/10/21 05:28 BUN 7 mg/dL (7-18) 04/10/21 05:28 Creatinine 0.49 mg/dL (0.55-1.3) L 04/10/21 05:28 Glucose 101 mg/dL (74-106) 04/10/21 05:28 Magnesium 2.2 mg/dL (1.8-2.4) 04/10/21 05:28 Troponin I < 0.02 ng/mL (0.0-0.045) 04/09/21 12:09 Triglycerides 74 mg/dL (<150) 04/10/21 05:28 Cholesterol 174 mg/dL (<200) 04/10/21 05:28 HDL Cholesterol 49 mg/dL (40-60) 04/10/21 05:28 Cholesterol/HDL Ratio 3.55 04/10/21 05:28 Home Medications: Multivitamin [Daily Adalgisa] 1 tab PO DAILY 04/09/21 Aspirin [Aspirin EC 81 MG] 81 mg PO DAILY 1 Days #30 tablet. 04/10/21 Atorvastatin Calcium [Lipitor] 40 mg PO BEDTIME #30 tab 04/10/21 Losartan Potassium 50 mg PO DAILY #30 tablet 04/10/21 New Medications: Aspirin [Aspirin EC 81 MG] 81 mg PO DAILY 1 Days #30 tablet. Atorvastatin Calcium [Lipitor] 40 mg PO BEDTIME #30 tab Losartan Potassium 50 mg PO DAILY #30 tablet Physician Discharge Instructions: OK TO DC IV AND DC HOME FOLLOW-UP WITH PRIMARY CARE PROVIDER IN 1-2 WEEKS FOLLOW-UP WITH NEUROLOGY IN 1-2 WEEKS RETURN TO THE ER IF symptoms worsen CALL or TEXT DR. AVILA AT [phone] IF ANY QUESTIONS REGARDING HOSPITAL STAY. PLEASE CALL THE FLOOR AT [phone] IF ANY MEDICATION OR NURSING QUESTIONS. Diet: AHA Activity: Fall precautions Followup: Ayden Altman MD [ASSOCIATE-ACTIVE - CAN ADMIT] - (follow up in 1 month- call to schedule an appointment ) NONE,NONE [Primary Care Provider] - Time spent managing pt's care (in minutes): 35
== END 2021-04-10 16:15 | disposition home or self-care (01) ==
LOC: ER 11:39 → ERHOLD 14:54 → 2ND 16:00
PROVIDERS: ADMIT Family Medicine; ATTEND Family Medicine
DX: I63.9 Cerebral infarction, unspecified (principal); R47.81 Slurred speech; R27.8 Other lack of coordination; R29.701 NIHSS score 1; F17.210 Nicotine dependence, cigarettes, uncomplicated; E78.5 Hyperlipidemia, unspecified; I65.22 Occlusion and stenosis of left carotid artery; I66.02 Occlusion and stenosis of left middle cerebral artery; Z20.822 Contact with and (suspected) exposure to COVID-19
CPT/HCPCS: 96365; 96361; 93005 ×2; 93306; 85025 ×2; 80048 ×2; 36415; 83735; 85610; 80061; 82947; 85730; 84443; 84484; 84439; 70496; 70498; 70450; 71045; 93880; 70553; 70544; 70549; 92610; 97161; 99285; U0003; Q9967; A9577; J1650; J7042; J7030; G0378 ×3; J7606

== ENCOUNTER 2023-02-23 10:50 | Emergency (ER) | payer OTHER ==
--- NOTE | 2023-02-23 11:29 | RAD REPORT ---
EXAM DESCRIPTION: RAD - Wrist Right 3 View - 02/23/2023 11:21 am CLINICAL HISTORY: Pain;Swelling COMPARISON: No comparisons FINDINGS/IMPRESSION: No acute fracture. Severe degenerative changes at the STT joint. Carpal crowdin g with mild proximal migration of the capitate. Nonspecific cystic changes in the carpus. Fusion at t he first MTP joint
--- NOTE | 2023-02-23 14:06 | ER ---
Nurse's Notes [facility] Name: Karin Ayala Age: 73 yrs Sex: Female : 1950 Arrival Date: 02/23/2023 Time: 10:50 Bed DIS3 Private MD: Diagnosis: Other specified sprain of right wrist;Contusion of right hand;Mononeuropathy, unspecified Presentation: 02/23 10:56 Chief complaint: Right wrist pain that radiates to hand and hand swelling upon waking hb today. Pt denies injury but spent the last few days deep cleaning the house and using a steam tender. Coronavirus screen: At this time, the client does not indicate any symptoms associated with coronavirus-19. Ebola Screen: No symptoms or risks identified at this time. Initial Sepsis Screen: Does the patient meet any 2 criteria? No. Patient's initial sepsis screen is negative. Does the patient have a suspected source of infection? No. Patient's initial sepsis screen is negative. Risk Assessment: Do you want to hurt yourself or someone else? Patient reports no desire to harm self or others. Onset of symptoms was February 23, 2023. 10:56 Method Of Arrival: Ambulatory hb 10:56 Acuity: RUDDY 4 hb Historical: - Allergies: 10:57 No Known Allergies; hb - Home Meds: 10:59 aspirin Oral [Active]; hb - PMHx: 10:57 CVA (Shoulder); hb - PSHx: 10:57 Shoulder; Right; hb - Immunization history:: Adult Immunizations up to date. - Social history:: Smoking status: Patient reports the use of cigarette tobacco products, smokes one-half pack cigarettes per day. Vital Signs: 10:56 BP 158 / 98; Pulse 89; Resp 16; Temp 99(TE); Pulse Ox 99% on R/A; Weight 56.7 kg; hb Height 5 ft. 0 in. ; Pain 10/10; 10:56 Body Mass Index 24.41 (56.70 kg, 152.4 cm) hb 10:56 Pain Scale: Adult hb ED Course: 10:51 Patient arrived in ED. mg5 10:52 Lula Retana PA-C is PHCP. sb4 10:52 Ronald Sharp MD is Attending Physician. sb4 10:57 Triage completed. hb 10:58 Arm band placed on. hb 11:23 Wrist Right 3 View XRAY In Process Unspecified. EDMS Administered Medications: No medications were administered Outcome: 14:05 Discharge ordered by . sb4 14:11 Discharged to home ambulatory, jl7 14:11 Condition: good 14:11 Discharge instructions given to patient, Instructed on discharge instructions, follow up and referral plans. medication usage, Demonstrated understanding of instructions, follow-up care, medications, Prescriptions given X 1, 14:12 Patient left the ED. jl7 Signatures: Dispatcher [employer] EDMS Maricel Nguyễn, RN RN hb Mally Collier RN RN jl7 Lula Retana, PA-C PA-C beth4 Yodit Rico mg5 Corrections: (The following items were deleted from the chart) 10:58 10:57 PMHx: CVA (Shoulder); hb hb 10:59 10:59 Home Meds: None; hb hb
--- NOTE | 2023-02-23 14:06 | EDPHYS ---
Physician Documentation [facility] Name: Karin Ayala Age: 73 yrs Sex: Female : 1950 Arrival Date: 02/23/2023 Time: 10:50 Bed DIS3 Private MD: ED Physician Ronald Sharp HPI: 02/24 09:08 This 73 yrs old Female presents to ER via Ambulatory with complaints of Wrist Pain. sb4 09:08 patient states that the past 3 days she has been cleaning her house and her right hand sb4 for a lot of chores. she states her right hand/wrist have a lot of pain today and are slightly swollen. she denies any specific injury. she denies any numbness or tingling, just endorses pain and swelling. Historical: - Allergies: 02/23 10:57 No Known Allergies; hb - Home Meds: 10:59 aspirin Oral [Active]; hb - PMHx: 10:57 CVA (Shoulder); hb - PSHx: 10:57 Shoulder; Right; hb - Immunization history:: Adult Immunizations up to date. - Social history:: Smoking status: Patient reports the use of cigarette tobacco products, smokes one-half pack cigarettes per day. ROS: 02/24 09:16 Constitutional: Negative for fever, chills, and weight loss, sb4 MS/extremity: Positive for pain, of the lateral aspect of right wrist, lateral aspect of right hand, medial aspect of right wrist and medial aspect of right hand, All other systems are negative, Exam: 09:16 Hand exam: ROM: limited active range of motion due to pain, limited passive range of sb4 motion due to pain, Circulation is intact in all extremities. Pulses: are normal with no appreciated deficits, Perfusion: the extremity is normally perfused throughout, sensation intact. 09:16 Skin: mild swelling dorsal aspect of right hand. 09:16 Constitutional: This is a well developed, well nourished patient who is awake, alert, and in no acute distress. Head/Face: Normocephalic, atraumatic. Eyes: Extra-ocular motions intact. Periorbital areas with no swelling, redness, or edema. ENT: Mucous membranes moist. MS/ Extremity: Pulses equal, no cyanosis. Neurovascular intact. Full, normal range of motion. Neuro: Awake and alert, GCS 15, oriented to person, place, time, and situation. Motor strength 5/5 in all extremities. Sensory grossly intact. Vital Signs: 02/23 10:56 BP 158 / 98; Pulse 89; Resp 16; Temp 99(TE); Pulse Ox 99% on R/A; Weight 56.7 kg; hb Height 5 ft. 0 in. ; Pain 02/05; 10:56 Body Mass Index 24.41 (56.70 kg, 152.4 cm) hb 10:56 Pain Scale: Adult hb MDM: 11:05 Patient medically screened. sb4 02/24 09:16 Differential diagnosis: dislocation, closed fracture, contusion, tendonitis. Data sb4 reviewed: vital signs, nurses notes, radiologic studies, and as a result, I will discharge patient. Independent interpretation of the following test(s) in the Emergency Department X-Ray: My interpretation is my interpretation of the hand/wrist xray images are no acute fracture or dislocation. Counseling: I had a detailed discussion with the patient and/or guardian regarding the historical points, exam findings, and any diagnostic results supporting the discharge/admit diagnosis, radiology results, the need for outpatient follow up, a orthopedic surgeon, to return to the emergency department if symptoms worsen or persist or if there are any questions or concerns that arise at home. 02/23 10:59 Order name: Wrist Right 3 View XRAY; Complete Time: 11:30 hb 02/23 11:44 Order name: Wrist Splint; Complete Time: 12:58 sb4 Administered Medications: No medications were administered Disposition Summary: 02/23/23 14:05 Discharge Ordered Notes: Location: Home sb4 Problem: new sb4 Symptoms: are unchanged sb4 Condition: Stable sb4 Diagnosis - Other specified sprain of right wrist sb4 - Contusion of right hand sb4 - Mononeuropathy, unspecified sb4 Followup: sb4 - With: Emergency Department - When: As needed - Reason: Trouble breathing, Worsening of condition Discharge Instructions: - Discharge Summary Sheet sb4 - Neuropathic Pain sb4 - Wrist Sprain, Adult sb4 Forms: - Medication Reconciliation Form sb4 - Thank You Letter sb4 - Antibiotic Education sb4 - Prescription Opioid Use sb4 - Patient Portal Instructions sb4 - Leadership Thank You Letter sb4 Prescriptions: - gabapentin 100 mg Oral capsule - take 2 capsule ORAL route 3 times per day; 15 capsule; Refills: 0, Product sb4 Selection Permitted Addendum: 15:06 I was immediately available for consultation during this patient's visit. I did not e c2 personally see the patient or guide the patient's care. . Signatures: Dispatcher [employer] Maricel Greenberg RN RN Lula Peres, RAMON NAVARRO sb4 Ronald Sharp MD MD ec2 Corrections: (The following items were deleted from the chart) 02/23 10:58 10:57 PMHx: CVA (Shoulder); hb hb 10:59 10:59 Home Meds: None; hb hb
[2023-02-23 14:17] VITALS: BP 158/98; TEMP 99; O2SAT 99
== END 2023-02-23 14:12 | disposition home or self-care (01) ==
LOC: ER 10:50
DX: S63.591A Other specified sprain of right wrist, initial encounter (principal); S60.221A Contusion of right hand, initial encounter; G58.9 Mononeuropathy, unspecified; F17.210 Nicotine dependence, cigarettes, uncomplicated; Z86.73 Personal history of transient ischemic attack (TIA), and cerebral infarction without residual deficits; Z79.82 Long term (current) use of aspirin
CPT/HCPCS: 99283

== ENCOUNTER 2023-03-16 14:23 | Emergency (ER) | payer OTHER ==
[2023-03-16 15:25] LABS: Absolute Lymphocytes (CBC) 1.8 K/uL (0.7-4.9); Hematocrit 37.1 % (36.0-45.0); Lymphocytes % 16.4 % (15.3-44.8); MCV 88.6 fL (80-100); MPV 6.3 fL (7.6-11.3); Platelets 499 thou/uL (152-406); RBC Red Blood Cell Count 4.19 M/uL (3.86-4.86)
[2023-03-16 15:27] LABS: Protime INR 1.01
[2023-03-16] MEDS ORDERED: ONDANSETRON 4 MG/2 ML VIAL ONE (15:29)
[2023-03-16] MEDS ORDERED: FENTANYL CITR 100 MCG/2 ML ONE (15:29)
[2023-03-16] MEDS ORDERED: NA CHLORIDE 0.9% 500 ML ONE (15:29)
[2023-03-16 15:44] LABS: ALT/SGPT 14 U/L (13-56); AST/SGOT 10 U/L (15-37); Albumin 3.3 g/dL (3.4-5.0); Alkaline Phosphatase 109 U/L (45-117); BUN Blood Urea Nitrogen 12 mg/dL (7-18); Bicarbonate 27 mEq/L (21-32); Bilirubin Total 0.2 mg/dL (0.2-1.0); Glomerular Filtration Rate 98 ml/min (=/>90); Glucose Level 87 mg/dL (74-106); Magnesium 2.3 mg/dL (1.6-2.4); NT PRO-BNP 214 pg/mL (<125); Protein, Total 7.4 g/dL (6.4-8.2); Sodium Level 134 mEq/L (136-145); Troponin High Sensitivity 40.4 pg/mL (<58.9)
[2023-03-16 15:45] LABS: Bilirubin Direct < 0.1 mg/dL (0-0.2); Bilirubin Indirect, Calculated ND mg/dL (0.2-0.8)
--- NOTE | 2023-03-16 15:58 | RAD REPORT ---
EXAM DESCRIPTION: US - UPPER EXTREMITY VENOUS UNILATE - 03/16/2023 3:32 pm CLINICAL HISTORY: left arm pain COMPARISON: None. FINDINGS: Left internal jugular vein, left subclavian vein, left axillary vein, left brachial vein, left cephalic, left basilic, left ulnar and left radial veins demonstrate phasic signal. The veins are compressible. Doppler demonstrates good flow. Grayscale, color and spectral analysis performed on all vessels IMPRESSION: No sonographic evidence of thrombus involving the left upper extremity veins.
--- NOTE | 2023-03-16 16:07 | RAD REPORT ---
EXAM DESCRIPTION: CT - C Spine Wo Con - 03/16/2023 3:52 pm CLINICAL HISTORY: Left arm numbness and radiculopathy COMPARISON: 2020 TECHNIQUE: Computed axial tomography of the cervical spine were obtained with sagittal and coronal r econstruction images generated and reviewed. All CT scans are performed using dose optimization technique as appropriate and may include automated exposure control or mA/KV adjustment according to patient size. FINDINGS: A cervical fracture is not seen. No dislocation. Mild to moderate chronic anterior subluxation C3 on C4 Spondylosis C5-6 resulting in moderate bilateral foraminal stenosis Spondylosis C6-7 resulting in moderate left foraminal stenosis No high-grade central spinal stenosis 2.2 x 1.3 centimeter right upper lobe opacity has increased in size. Several reticulonodular opacitie s have developed within the left upper lobe IMPRESSION: A cervical fracture is not seen. Spondylosis C5-6 resulting in moderate bilateral foraminal stenosis Spondylosis C6-7 resulting in moderate left foraminal stenosis If clinically indicated MRI could be obtained for further evaluation 2.2 x 1.3 centimeter right upper lobe opacity has increased in size since 2020 it may represent progr essive fibrosis, inflammation or neoplasm. IPET-CT scan recommended Reticulonodular opacities left upper lobe probably infectious/inflammatory
--- NOTE | 2023-03-16 16:08 | RAD REPORT ---
EXAM DESCRIPTION: Janak Single View03/16/2023 3:21 pm CLINICAL HISTORY: Chest pain COMPARISON: 2020 FINDINGS: 2 centimeter right upper lobe opacity. Mild reticulonodular opacities left upper lobe Heart is mildly enlarged IMPRESSION: 2 centimeter right upper lobe opacity. Mild reticulonodular opacities left upper lobe Refer to the CT neck report on today's date for recommendation
[2023-03-16] MEDS ORDERED: KETOROLAC 30 MG/ML INJ ONE (16:53)
[2023-03-16] MEDS ORDERED: dexAMETHasone 10 MG/ML VIAL ONE (16:53)
--- NOTE | 2023-03-16 17:13 | RAD REPORT ---
EXAM DESCRIPTION: RAD - Forearm Left - 03/16/2023 4:52 pm CLINICAL HISTORY: Left forearm pain FINDINGS: No fracture is seen. No bony lesion noted 5 millimeter density medial wrist likely chronic
--- NOTE | 2023-03-16 17:34 | RAD REPORT ---
EXAM DESCRIPTION: CT - Thorax W/ Dhiraj - 03/16/2023 5:13 pm CLINICAL HISTORY: Shortness of breath COMPARISON: None TECHNIQUE: Computed axial tomography of the chest was obtained. 100 cc Isovue 300 was administered i ntravenously. All CT scans are performed using dose optimization technique as appropriate and may include automated exposure control or mA/KV adjustment according to patient size. FINDINGS: 3.9 centimeter mass medial left upper lobe abutting the mediastinum. The mass extends into the left hilum. There is a 1.6 centimeter nodule anterior to this within left upper lobe. Mild retic ulonodular opacities left upper lobe. A 7 millimeter subpleural nodule left lower lobe. 9 millimeter nodule right upper lobe. A 2 centimeter lobulated opacity right upper lobe. Tiny nodule right lower lobe A pleural effusion is not present. A pericardial effusion is not seen. 1.5 centimeter left adrenal nodule Hounsfield unit 35 Marked compression deformity midthoracic vertebral body probably chronic and secondary to osteoporosi s Small lesion posterior upper back subcutaneous tissues near midline IMPRESSION: 3.9 centimeter mass medial left upper lobe abutting the mediastinum extending into the l eft hilum likely neoplasm. Bilateral pulmonary nodules probably metastatic 2 centimeter right upper lobe lobulated opacity may be inflammatory, progressive fibrosis or neoplasm 1.5 centimeter left adrenal nodule may be metastasis or adenoma
--- NOTE | 2023-03-16 17:39 | ER ---
Nurse's Notes [facility] Name: Karin Ayala Age: 73 yrs Sex: Female : 1950 Arrival Date: 03/16/2023 Time: 14:23 Bed 20 Private MD: Diagnosis: Tobacco abuse counseling;Tobacco use;Pain in left forearm;Solitary pulmonary nodule;Spondylolysis, cervical region;Secondary malignant neoplasm of bone-left forearm;Neoplasm of uncertain behavior of trachea, bronchus and lung Presentation: 03/16 14:30 Chief complaint: Patient states: for one week patient having pain in left tm6 hand/wrist/arm, up to elbow. Numbness in hand. Occasional sharp shooting pain through arm. Coronavirus screen: Vaccine status: Patient reports being unvaccinated. Ebola Screen: Patient negative for fever greater than or equal to 101.5 degrees Fahrenheit, and additional compatible Ebola Virus Disease symptoms Patient denies exposure to infectious person. Patient denies travel to an Ebola-affected area in the 21 days before illness onset. No symptoms or risks identified at this time. Initial Sepsis Screen: Does the patient meet any 2 criteria? No. Patient's initial sepsis screen is negative. Does the patient have a suspected source of infection? No. Patient's initial sepsis screen is negative. Risk Assessment: Do you want to hurt yourself or someone else? Patient reports no desire to harm self or others. Onset of symptoms was March 09, 2023. 14:30 Method Of Arrival: Ambulatory tm6 14:30 Acuity: RUDDY 3 tm6 Triage Assessment: 14:30 General: Appears uncomfortable, Behavior is calm, cooperative, appropriate for age. tm6 Pain: Complains of pain in left hand and left arm Pain currently is 6 out of 10 on a pain scale. at worst was 10 out of 10 on a pain scale. Quality of pain is described as sharp, shooting, throbbing, numb, Pain began one week ago Is intermittent. EENT: No signs and/or symptoms were reported regarding the EENT system. Neuro: Level of Consciousness is awake, alert, obeys commands, Oriented to person, place, time, situation. Cardiovascular: Capillary refill < 3 seconds Patient's skin is warm and dry. Respiratory: Airway is patent Respiratory effort is even, unlabored, Respiratory pattern is regular, symmetrical. GI: Abdomen is flat, non-distended. : No signs and/or symptoms were reported regarding the genitourinary system. Derm: No signs and/or symptoms reported regarding the dermatologic system. Musculoskeletal: No signs and/or symptoms reported regarding the musculoskeletal system. 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 - Social history:: Smoking status: Patient reports the use of cigarette tobacco products, smokes one-half pack cigarettes per day, Patient/guardian denies using alcohol. - Family history:: not pertinent. Screenin:45 [facility] ED Fall Risk Assessment (Adult) History of falling in the last 3 months, me1 including since admission No falls in past 3 months (0 pts) Confusion or Disorientation No (0 pts) Intoxicated or Sedated No (0 pts) Impaired Gait No (0 pts) Mobility Assist Device Used No (0 pt) Altered Elimination No (0 pt) Score/Fall Risk Level 0 - 2 = Low Risk. Abuse screen: Denies threats or abuse. Nutritional screening: No deficits noted. Tuberculosis screening: No symptoms or risk factors identified. Assessment: 17:45 General: Appears uncomfortable, well groomed, well developed, well nourished, Behavior me1 is calm, cooperative, appropriate for age, Reports for one week patient having pain in left hand/wrist/arm, up to elbow. Numbness in hand. Occasional sharp shooting pain through arm. Pain: Complains of pain in palmar aspect of left forearm and dorsal aspect of left forearm and left arm and left hand Pain radiates to left arm Pain at worst was 7 out of 10 on a pain scale. Quality of pain is described as shooting, Pain began one week ago Is continuous. Neuro: Level of Consciousness is awake, alert, obeys commands, Oriented to person, place, time, situation, Appropriate for age. Cardiovascular: Capillary refill < 3 seconds Patient's skin is warm and dry. Respiratory: Airway is patent Respiratory effort is even, unlabored, Respiratory pattern is regular, symmetrical. Musculoskeletal: Reports pain in palmar aspect of left forearm and dorsal aspect of left forearm and left arm and left hand since one week ago. Vital Signs: 14:28 BP 143 / 104; Pulse 87; Resp 17; Temp 97.8(O); Pulse Ox 98% on R/A; Weight 56.7 kg; tm6 Height 5 ft. 0 in. ; Pain 6/10; 15:20 BP 163 / 84; Pulse 81; Resp 18; Pulse Ox 97% on R/A; me1 16:30 BP 179 / 80; Pulse 81; Resp 18; Pulse Ox 97% on R/A; me1 18:11 BP 136 / 75; Pulse 80; Resp 18; Pulse Ox 95% on R/A; me1 14:28 Body Mass Index 24.41 (56.70 kg, 152.4 cm) tm6 14:28 Pain Scale: Adult tm6 ED Course: 14:24 Patient arrived in ED. rg4 14:30 Arm band placed on right wrist. tm6 14:32 Triage completed. tm6 14:44 Surinder Vega MD is Attending Physician. alice 14:58 Jayde Sandhu, LEVAR is Primary Nurse. me1 15:11 Basic Metabolic Panel Sent. me1 15:11 CBC with Diff Sent. me1 15:11 LFT's Sent. me1 15:11 Magnesium Sent. me1 15:11 NT PRO-BNP Sent. me1 15:11 PT-INR Sent. me1 15:11 Troponin HS Sent. me1 15:23 XRAY Chest (1 view) In Process Unspecified. EDMS 15:34 UPPER EXTREMITY VENOUS UNILATE In Process Unspecified. EDMS 15:52 CT C Spine In Process Unspecified. EDMS 16:54 Forearm Left XRAY In Process Unspecified. EDMS 17:14 CT Chest W/ Con In Process Unspecified. EDMS 17:39 Ayden Altman MD is Referral Physician. alice 17:39 Skip Torres MD is Referral Physician. alice 17:39 Brenden Hickman MD is Referral Physician. alice 17:45 Patient has correct armband on for positive identification. Bed in low position. Call me1 light in reach. Side rails up X 1. Provided Education on: POC. Verbalized understanding. . 17:45 No provider procedures requiring assistance completed. me1 18:13 IV discontinued, intact, bleeding controlled, No redness/swelling at site. Pressure me1 dressing applied. Administered Medications: 15:25 Not Given (Patient Refused): fentanyl (pf)25 mcg IVP once me1 15:25 Not Given (Patient Refused): ondansetron 4 mg IVP once; over 2 minutes me1 15:43 Drug: NS 0.9% IV 500 ml IV at bolus once Route: IV; Rate: bolus; Site: right me1 antecubital; 17:00 Follow up: IV Status: Completed infusion me1 16:43 Drug: Decadron - Dexamethasone IVP 10 mg IVP once Route: IVP; Site: right antecubital; me1 17:00 Follow up: Response: No adverse reaction me1 16:43 Drug: Ketorolac IVP 30 mg IVP once Route: IVP; Site: right antecubital; me1 17:00 Follow up: Response: No adverse reaction me1 Medication: 17:45 VIS not applicable for this client. me1 Outcome: 17:39 Discharge ordered by . alice 18:12 Discharged to home ambulatory, [facility] 18:12 Condition: stable 18:12 Discharge instructions given to patient, Instructed on discharge instructions, follow up and referral plans. Demonstrated understanding of instructions, follow-up care, medications, Prescriptions given X 4, 18:13 Patient left the ED. me1 Signatures: Dispatcher [employer] EDSurinder De Anda MD MD cha Garcia, Rubi rg4 Jayde Sandhu RN RN me1 Leatha Villagran RN RN tm6 Corrections: (The following items were deleted from the chart) 17:45 14:30 Chief complaint: Patient states: for one week patient having pain in left me1 hand/wrist/arm, up to elbow. Numbness in hand. Occasional sharp shooting pain through arm. tm6
--- NOTE | 2023-03-16 17:39 | EDPHYS ---
Physician Documentation [facility] Name: Karin Ayala Age: 73 yrs Sex: Female : 1950 Arrival Date: 03/16/2023 Time: 14:23 Bed 20 Private MD: ED Physician Surinder Vega HPI: 03/16 16:25 This 73 yrs old Female presents to ER via Ambulatory with complaints of Arm alice Pain. 16:25 The patient or guardian complains of decreased range of motion, pain, that is chronic. alice The complaints affect the dorsal aspect of left forearm and palmar aspect of left forearm. Context: The problem was sustained at an unknown location, resulted from unknown cause. Onset: The symptoms/episode began/occurred 2 day(s) ago. Treatment prior to arrival includes: no previous treatment. Modifying factors: The symptoms are alleviated by remaining still, the symptoms are aggravated by movement. Associated signs and symptoms: The patient has no apparent associated signs or symptoms. Severity of symptoms: At their worst the symptoms were mild, in the emergency department the symptoms are unchanged. The patient has experienced similar episodes in the past, several times. 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 - Social history:: Smoking status: Patient reports the use of cigarette tobacco products, smokes one-half pack cigarettes per day, Patient/guardian denies using alcohol. - Family history:: not pertinent. ROS: 16:25 Constitutional: Negative for fever, chills, and weight loss, Eyes: Negative for injury, alice pain, redness, and discharge, ENT: Negative for injury, pain, and discharge, Neck: Negative for injury, pain, and swelling, Cardiovascular: Negative for chest pain, palpitations, and edema, Respiratory: Negative for shortness of breath, cough, wheezing, and pleuritic chest pain, Abdomen/GI: Negative for abdominal pain, nausea, vomiting, diarrhea, and constipation, Back: Negative for injury and pain, : Negative for injury, bleeding, discharge, and swelling, Skin: Negative for injury, rash, and discoloration, Neuro: Negative for headache, weakness, numbness, tingling, and seizure, Psych: Negative for depression, anxiety, suicide ideation, homicidal ideation, and hallucinations, Allergy/Immunology: Negative for hives, rash, and allergies, Endocrine: Negative for neck swelling, polydipsia, polyuria, polyphagia, and marked weight changes, Hematologic/Lymphatic: Negative for swollen nodes, abnormal bleeding, and unusual bruising, 16:25 MS/extremity: Positive for injury or acute deformity, tenderness, of the dorsal aspect of left forearm and palmar aspect of left forearm, 16:25 MS/extremity: Positive for Negative for swelling, 16:25 Neuro: Negative for weakness, Exam: 16:25 Constitutional: This is a well developed, well nourished patient who is awake, alert, alice and in no acute distress. Head/Face: Normocephalic, atraumatic. Eyes: Pupils equal round and reactive to light, extra-ocular motions intact. Lids and lashes normal. Conjunctiva and sclera are non-icteric and not injected. Cornea within normal limits. Periorbital areas with no swelling, redness, or edema. ENT: Nares patent. No nasal discharge, no septal abnormalities noted. Tympanic membranes are normal and external auditory canals are clear. Oropharynx with no redness, swelling, or masses, exudates, or evidence of obstruction, uvula midline. Mucous membranes moist. Neck: Trachea midline, no thyromegaly or masses palpated, and no cervical lymphadenopathy. Supple, full range of motion without nuchal rigidity, or vertebral point tenderness. No Meningismus. Chest/axilla: Normal chest wall appearance and motion. Nontender with no deformity. No lesions are appreciated. Cardiovascular: Regular rate and rhythm with a normal S1 and S2. No gallops, murmurs, or rubs. Normal PMI, no JVD. No pulse deficits. Respiratory: Lungs have equal breath sounds bilaterally, clear to auscultation and percussion. No rales, rhonchi or wheezes noted. No increased work of breathing, no retractions or nasal flaring. Abdomen/GI: Soft, non-tender, with normal bowel sounds. No distension or tympany. No guarding or rebound. No evidence of tenderness throughout. Back: No spinal tenderness. No costovertebral tenderness. Full range of motion. Female : Normal external genitalia. Skin: Warm, dry with normal turgor. Normal color with no rashes, no lesions, and no evidence of cellulitis. Neuro: Awake and alert, GCS 15, oriented to person, place, time, and situation. Cranial nerves II-XII grossly intact. Motor strength 5/5 in all extremities. Sensory grossly intact. Cerebellar exam normal. Normal gait. Psych: Awake, alert, with orientation to person, place and time. Behavior, mood, and affect are within normal limits. 16:25 ECG was reviewed by the Attending Physician. 16:29 Musculoskeletal/extremity: Extremities: all appear grossly normal, with no appreciated alice pain with palpation, ROM: no acute changes, intact in all extremities, full active range of motion, full passive range of motion, Circulation is intact in all extremities. Pulses: are normal with no appreciated deficits, Perfusion: the patient is normally perfused throughout, Perfusion: the extremity is normally perfused throughout, Edema, is not appreciated, Sensation intact. Compartment Syndrome exam of affected extremity: is normal. DVT Exam: no pain, no swelling, no tenderness, negative Homans' sign noted on exam, no appreciated bluish discoloration, no erythema, no increased warmth, Vital Signs: 14:28 BP 143 / 104; Pulse 87; Resp 17; Temp 97.8(O); Pulse Ox 98% on R/A; Weight 56.7 kg; tm6 Height 5 ft. 0 in. ; Pain 6/10; 15:20 BP 163 / 84; Pulse 81; Resp 18; Pulse Ox 97% on R/A; me1 16:30 BP 179 / 80; Pulse 81; Resp 18; Pulse Ox 97% on R/A; me1 18:11 BP 136 / 75; Pulse 80; Resp 18; Pulse Ox 95% on R/A; me1 14:28 Body Mass Index 24.41 (56.70 kg, 152.4 cm) tm6 14:28 Pain Scale: Adult tm6 MDM: 14:44 Patient medically screened. [facility] 16:30 Differential diagnosis: contusion, tendonitis. Data reviewed: vital signs, nurses [facility] notes, lab test result(s), EKG, radiologic studies, CT scan, doppler, plain films. Consideration of Admission/Observation Escalation of care including admission/observation considered. I considered the following discharge prescriptions or medication management in the emergency department Medications were administered in the Emergency Department. See MAR. Independent interpretation of the following test(s) in the Emergency Department EKG: See my EKG interpretation above. Test considered but Not performed: MRI: no mri forearm. Historians other than the Patient: pt well informed , no specific trauma, no cp , heavy smoker. Care significantly affected by the following chronic conditions: cva. 03/16 14:43 Order name: Basic Metabolic Panel; Complete Time: 15:52 [facility] 03/16 14:43 Order name: CBC with Diff; Complete Time: 15:52 [facility] 03/16 14:43 Order name: LFT's; Complete Time: 15:52 [facility] 03/16 14:43 Order name: Magnesium; Complete Time: 15:52 [facility] 03/16 14:43 Order name: NT PRO-BNP; Complete Time: 15:52 [facility] 03/16 14:43 Order name: PT-INR; Complete Time: 15:52 [facility] 03/16 14:43 Order name: Troponin HS; Complete Time: 15:52 [facility] 03/16 14:43 Order name: XRAY Chest (1 view); Complete Time: 16:10 [facility] 03/16 14:43 Order name: CT C Spine; Complete Time: 16:10 [facility] 03/16 14:51 Order name: UPPER EXTREMITY VENOUS UNILATE; Complete Time: 16:10 EDMS 03/16 16:23 Order name: CT Chest W/ Con [facility] 03/16 16:35 Order name: Forearm Left XRAY 03/16 14:43 Order name: EKG; Complete Time: 14:44 [facility] 03/16 14:43 Order name: Cardiac monitoring [facility] 03/16 14:43 Order name: EKG - Nurse/Tech [facility] 03/16 14:43 Order name: IV Saline Lock; Complete Time: 15:11 [facility] 03/16 14:43 Order name: Labs collected and sent; Complete Time: 15:11 [facility] 03/16 14:43 Order name: O2 Per Protocol; Complete Time: 15:11 [facility] 03/16 14:43 Order name: O2 Sat Monitoring; Complete Time: 15:11 [facility] EC:25 Rate is 78 beats/min. Rhythm is regular. QRS [place] is Normal. SD interval is normal. QRS alice interval is normal. QT interval is normal. No Q waves. T waves are Normal. No ST changes noted. Clinical impression: Normal ECG, NSR w/ Non-specific ST/T Changes, and No evidence of ischemia. Interpreted by me. Reviewed by me. Administered Medications: 15:25 Not Given (Patient Refused): fentanyl (pf)25 mcg IVP once me1 15:25 Not Given (Patient Refused): ondansetron 4 mg IVP once; over 2 minutes me1 15:43 Drug: NS 0.9% IV 500 ml IV at bolus once Route: IV; Rate: bolus; Site: right me1 antecubital; 17:00 Follow up: IV Status: Completed infusion me1 16:43 Drug: Decadron - Dexamethasone IVP 10 mg IVP once Route: IVP; Site: right antecubital; me1 17:00 Follow up: Response: No adverse reaction me1 16:43 Drug: Ketorolac IVP 30 mg IVP once Route: IVP; Site: right antecubital; me1 17:00 Follow up: Response: No adverse reaction me1 Disposition Summary: 03/16/23 17:39 Discharge Ordered Notes: Location: Home aliec Problem: new alice Symptoms: have improved alice Condition: Stable alice Diagnosis - Tobacco abuse counseling alice - Tobacco use alice - Pain in left forearm alice - Solitary pulmonary nodule alice - Spondylolysis, cervical region alice - Secondary malignant neoplasm of bone - left forearm alice - Neoplasm of uncertain behavior of trachea, bronchus and lung alice Followup: alice - With: Private Physician - When: 2 - 3 days - Reason: Recheck today's complaints, Continuance of care, Re-evaluation by your physician Followup: alice - With: Ayden Altman MD - When: 2 - 3 days - Reason: Recheck today's complaints, Re-evaluation by your physician Followup: alice - With: Skip Torres MD - When: 2 - 3 days - Reason: Recheck today's complaints, Re-evaluation by your physician Followup: alice - With: Brenden Hickman MD - When: 2 - 3 days - Reason: Recheck today's complaints, Re-evaluation by your physician Discharge Instructions: - Discharge Summary Sheet alice - Musculoskeletal Pain alice - Steps to Quit Smoking alice - Health Risks of Smoking alice - Bone Metastasis alice - Lung Cancer alice - Metastatic Cancer alice - Steps to Quit Smoking, [id number] alice - Pulmonary Nodule alice - Lung Mass alice - Spondylolysis alice Forms: - Medication Reconciliation Form alice - Thank You Letter alice - Antibiotic Education alice - Prescription Opioid Use alice - Patient Portal Instructions alice - Leadership Thank You Letter alice Prescriptions: - acetaminophen-codeine 300-30 mg Oral tablet - take 2 tablet ORAL route every 6 hours; 20 tablet; Refills: 0, Product alice Selection Permitted - dexamethasone 2 mg Oral tablet - take 1 tablet ORAL route 2 times per day; 8 tablet; Refills: 0, Product [facility] Selection Permitted - Motrin IB 200 mg Oral tablet - take 2 tablet ORAL route every 6 hours As needed as needed with food; 30 alice tablet; Refills: 0, Product Selection Permitted - Zithromax 500 mg Oral Tablet - take 1 tablet ORAL route once daily for 5 days; 5 tablet; Refills: 0, Product [facility] Selection Permitted Signatures: Dispatcher [employer] Surinder Tirado MD MD cha Eddleman, Michelle, RN RN me1 Leatha Villagran RN RN tm6 Corrections: (The following items were deleted from the chart) 14:51 14:44 Extremity Venous [email or web address] ordered. ED ED
[2023-03-16 18:46] VITALS: TEMP 97.8
[2023-03-16 18:51] VITALS: BP 136/75; O2SAT 95
--- NOTE | 2023-03-20 17:05 | EKG ---
Test Date: 2023-03-16 Test Time: 16:22:07 [employer] Wire Stitcher: MEASUREMENT RESULTS: Intervals: Rate: 78 AL: 118 QRSD: 84 QT: 394 QTc: 449 [place]: P: 65 AL: 118 QRS: 38 T: 66 INTERPRETIVE STATEMENTS: Normal sinus rhythm Anteroseptal infarct, age undetermined Abnormal ECG Compared to ECG 04/09/2021 18:49:10 No significant changes Electronically Signed On 03-20-23 16:55:08 WINDOW CUTTER by Manoj Diane
== END 2023-03-16 18:13 | disposition home or self-care (01) ==
LOC: ER 14:23
DX: C79.51 Secondary malignant neoplasm of bone (principal); D38.1 Neoplasm of uncertain behavior of trachea, bronchus and lung; M47.892 Other spondylosis, cervical region; R91.1 Solitary pulmonary nodule; Z71.6 Tobacco abuse counseling; Z72.0 Tobacco use; Z28.310 Unvaccinated for COVID-19
CPT/HCPCS: 96361; 93005; 85025; 80048; 36415; 83735; 85610; 80076; 84484; 83880; 72125; 71260; 71045; 73090; 93971; 96375; 96374; 99284; Q9967; J3010; J1100; J7040; J2405

== ENCOUNTER 2023-03-22 11:24 | Emergency (ER) | payer OTHER ==
--- NOTE | 2023-03-22 12:25 | ER ---
Nurse's Notes [facility] Name: Karin Ayala Age: 73 yrs Sex: Female : 1950 Arrival Date: 03/22/2023 Time: 11:24 Bed IW3 Private MD: None, None Diagnosis: Left upper extremity swelling, new cancerous mass with pulmonary nodules Presentation: 03/22 11:42 Chief complaint: Patient states: Here Saturday for "bone disease". Couldn't follow-up and ll1 all her meds are gone. Coronavirus screen: Client denies travel out of the [place] in the last 14 days. At this time, the client does not indicate any symptoms associated with coronavirus-19. Ebola Screen: Patient denies travel to an Ebola-affected area in the 21 days before illness onset. Initial Sepsis Screen: Does the patient meet any 2 criteria? No. Patient's initial sepsis screen is negative. Does the patient have a suspected source of infection? Yes: Bone or joint infection. Risk Assessment: Do you want to hurt yourself or someone else? Patient reports no desire to harm self or others. Onset of symptoms was March 17, 2023. 11:42 Method Of Arrival: Ambulatory ll1 11:42 Acuity: RUDDY 4 ll1 Triage Assessment: 12:56 General: Appears in no apparent distress. comfortable, Behavior is calm, cooperative. cm10 Pain: Complains of pain in left arm. Neuro: No deficits noted. Level of Consciousness is awake, alert, obeys commands, Oriented to person, place, time, situation. Respiratory: No deficits noted. Airway is patent Respiratory effort is even, unlabored, Respiratory pattern is regular, symmetrical. Historical: - Allergies: 11:41 No Known Allergies; ll1 - PMHx: 11:41 CVA (Shoulder); ll1 - PSHx: 11:41 carpal tunnel surgery bilaterally (er); Shoulder; Right; ll1 - Immunization history:: Adult Immunizations up to date. - Social history:: Smoking status: Patient reports the use of cigarette tobacco products, smokes one-half pack cigarettes per day. Screenin:56 [facility] ED Fall Risk Assessment (Adult) History of falling in the last 3 months, cm10 including since admission No falls in past 3 months (0 pts) Confusion or Disorientation No (0 pts) Intoxicated or Sedated No (0 pts) Impaired Gait No (0 pts) Mobility Assist Device Used No (0 pt) Altered Elimination No (0 pt) Score/Fall Risk Level 0 - 2 = Low Risk Oriented to surroundings, Maintained a safe environment, Hourly rounding (assess needs \\T\\ fall precautionary measures) done. Abuse screen: Denies threats or abuse. Denies injuries from another. Nutritional screening: No deficits noted. Tuberculosis screening: No symptoms or risk factors identified. Vital Signs: 11:42 BP 171 / 88; Pulse 81; Resp 20; Temp 97.2; Pulse Ox 98% ; Weight 54.43 kg; Height 5 ft. ll1 0 in. ; Pain 10/10; 11:42 Body Mass Index 23.44 (54.43 kg, 152.4 cm) ll1 11:42 Pain Scale: Adult ll1 ED Course: 11:27 Patient arrived in ED. as 11:27 None, None is Private Physician. as 11:33 Anil Love MD is Attending Physician. sp3 11:41 Arm band placed on. ll1 11:44 Triage completed. ll1 12:23 Meghana Myers MD is Referral Physician. sp3 12:57 Patient has correct armband on for positive identification. Provided Education on: cm10 Follow-up instructions.. 12:57 No provider procedures requiring assistance completed. Patient did not have IV access cm10 during this emergency room visit. Sling applied to left arm. Administered Medications: No medications were administered Medication: 12:56 VIS not applicable for this client. cm10 Outcome: 12:24 Discharge ordered by . sp3 12:57 Discharged to home ambulatory, cm10 12:57 Condition: good 12:57 Discharge instructions given to patient, Instructed on discharge instructions, follow up and referral plans. no driving heavy equipment, medication usage, Demonstrated understanding of instructions, follow-up care, medications, Prescriptions given X 1, 12:57 Patient left the ED. cm10 Signatures: Loren Kimball Lynsay, RN RN ll1 Anil Love MD MD sp3 Ashley Kimball RN RN cm10
--- NOTE | 2023-03-22 12:25 | EDPHYS ---
Physician Documentation [facility] Name: Karin Ayala Age: 73 yrs Sex: Female : 1950 Arrival Date: 03/22/2023 Time: 11:24 Bed IW3 Private MD: None, None ED Physician Anil Love HPI: 03/22 12:20 This 73 yrs old Female presents to ER via Ambulatory with complaints of Arm Pain - sp3 swelling. 12:20 73-year-old female with a prior history of CVA now presents to the ED for left arm sp3 swelling. Patient was seen last week here for the same thing and was diagnosed with a new pulmonary/mediastinal mass with multiple pulmonary nodules likely malignant in nature. Ultrasound of left upper extremity was negative. Current swelling is consistent with the same amount is during that time. Patient states she has been unable to follow-up with any physician. Patient denies fever, URI symptoms, chest pain, shortness of breath, syncope, near syncope, rash, bleeding, or any other signs or symptoms on ROS at this time.. Historical: - Allergies: 11:41 No Known Allergies; ll1 - PMHx: 11:41 CVA (Shoulder); ll1 - PSHx: 11:41 carpal tunnel surgery bilaterally (er); Shoulder; Right; ll1 - Immunization history:: Adult Immunizations up to date. - Social history:: Smoking status: Patient reports the use of cigarette tobacco products, smokes one-half pack cigarettes per day. ROS: 12:21 Eyes: Negative for injury, pain, redness, and discharge, ENT: Negative for injury, sp3 pain, and discharge, Neck: Negative for injury, pain, and swelling, Cardiovascular: Negative for chest pain, palpitations, and edema, Respiratory: Negative for shortness of breath, cough, wheezing, and pleuritic chest pain, Abdomen/GI: Negative for abdominal pain, nausea, vomiting, diarrhea, and constipation, Back: Negative for injury and pain, Skin: Negative for injury, rash, and discoloration, Neuro: Negative for headache, weakness, numbness, tingling, and seizure, Psych: Negative for depression, anxiety, suicide ideation, homicidal ideation, and hallucinations, Allergy/Immunology: Negative for hives, rash, and allergies, Endocrine: Negative for neck swelling, polydipsia, polyuria, polyphagia, and marked weight changes, Hematologic/Lymphatic: Negative for swollen nodes, abnormal bleeding, and unusual bruising, 12:21 All other systems are negative, Exam: 12:21 Constitutional: This is a well developed, well nourished patient who is awake, alert, sp3 and in no acute distress. Head/Face: Normocephalic, atraumatic. Eyes: Pupils equal round and reactive to light, extra-ocular motions intact. Lids and lashes normal. Conjunctiva and sclera are non-icteric and not injected. Cornea within normal limits. Periorbital areas with no swelling, redness, or edema. Neck: Trachea midline, no thyromegaly or masses palpated, and no cervical lymphadenopathy. Supple, full range of motion without nuchal rigidity, or vertebral point tenderness. No Meningismus. Chest/axilla: Normal chest wall appearance and motion. Nontender with no deformity. No lesions are appreciated. Cardiovascular: Regular rate and rhythm with a normal S1 and S2. No gallops, murmurs, or rubs. Normal PMI, no JVD. No pulse deficits. Respiratory: Lungs have equal breath sounds bilaterally, clear to auscultation and percussion. No rales, rhonchi or wheezes noted. No increased work of breathing, no retractions or nasal flaring. Abdomen/GI: Soft, non-tender, with normal bowel sounds. No distension or tympany. No guarding or rebound. No evidence of tenderness throughout. Back: No spinal tenderness. No costovertebral tenderness. Full range of motion. Skin: Warm, dry with normal turgor. Normal color with no rashes, no lesions, and no evidence of cellulitis. Neuro: Awake and alert, GCS 15, oriented to person, place, time, and situation. Cranial nerves II-XII grossly intact. Motor strength 5/5 in all extremities. Sensory grossly intact. Cerebellar exam normal. Normal gait. Psych: Awake, alert, with orientation to person, place and time. Behavior, mood, and affect are within normal limits. 12:21 Musculoskeletal/extremity: Left upper extremity full range of motion present. Distal neurovascular exam is normal. There is mild swelling present in the hand and proximal forearm. No traumatic signs noted.. Vital Signs: 11:42 BP 171 / 88; Pulse 81; Resp 20; Temp 97.2; Pulse Ox 98% ; Weight 54.43 kg; Height 5 ft. ll1 0 in. ; Pain 10/10; 11:42 Body Mass Index 23.44 (54.43 kg, 152.4 cm) ll1 11:42 Pain Scale: Adult ll1 MDM: 11:33 Patient medically screened. sp3 12:22 Data reviewed: vital signs, nurses notes, old medical records. ED course: I explained sp3 to patient that no further action in the emergency department is indicated. We will place patient's arm in a sling for comfort I will prescribe her tramadol. Patient to follow-up with Dr. Lopez and/or any oncologist. I am not highly suspicious for DVT given negative ultrasound last week. Clinically have also ruled out ACS, sepsis, pneumonia, or any other critical pathology at this time.. 03/22 12:23 Order name: Sling: Left UE; Complete Time: 12:57 sp3 Administered Medications: No medications were administered Disposition Summary: 03/22/23 12:24 Discharge Ordered Notes: Location: Home sp3 Condition: Stable sp3 Diagnosis - Left upper extremity swelling, new cancerous mass with pulmonary nodules sp3 Followup: sp3 - With: Meghana Myers MD - When: Upon discharge from the Emergency Department - Reason: Recheck today's complaints Discharge Instructions: - Discharge Summary Sheet sp3 - Lung Cancer sp3 Forms: - Medication Reconciliation Form sp3 - Thank You Letter sp3 - Antibiotic Education sp3 - Prescription Opioid Use sp3 - Patient Portal Instructions sp3 - Leadership Thank You Letter sp3 Prescriptions: - Tramadol 50 mg Oral Tablet - take 1 tablet ORAL route every 8 hours as needed; 12 tablet; Refills: 0, sp3 Product Selection Permitted Signatures: Alyssa Steele, RN RN ll1 Anil Love MD MD sp3
[2023-03-22 13:03] VITALS: BP 171/88; TEMP 97.2; O2SAT 98
== END 2023-03-22 12:57 | disposition home or self-care (01) ==
LOC: ER 11:24 → SUPCPDRO 11:24 → ER 12:57
DX: R22.32 Localized swelling, mass and lump, left upper limb (principal); C80.1 Malignant (primary) neoplasm, unspecified; F17.210 Nicotine dependence, cigarettes, uncomplicated; Z86.73 Personal history of transient ischemic attack (TIA), and cerebral infarction without residual deficits
CPT/HCPCS: 99283

== ENCOUNTER 2023-04-03 10:35 | Emergency (ER) | payer OTHER ==
--- OUTSIDE RECORDS SUMMARY | 2023-04-03 10:38 | XMS REPORT | Continuity of Care Document ---
Author Name Unknown Address [address] [place] [address] [employer] Address [address] [place] [id number] Care Team Providers Care Transcript Clerk Name Role Phone Shubham Shaffer Attending Clinician Unavailable Encounters Start Date/Time End Date/Time Encounter Type Admission Type Attending Clinicians Care Facility Care Department Encounter ID Source 2023-03-27 09:53:01 Outpatient Shubham Shaffer [facility] [id number] [facility]
--- NOTE | 2023-04-03 12:44 | RAD REPORT ---
EXAM DESCRIPTION: US - UPPER EXTREMITY VENOUS UNILATE - 04/03/2023 12:14 pm CLINICAL HISTORY: Pain, swelling, skin discoloration COMPARISON: 03/16/2023 TECHNIQUE: Real-time sonographic evaluation of the left upper extremity deep venous system was perfo rmed. FINDINGS: Normal compressibility, flow augmentation, phasic flow and spontaneous flow is identified in the left upper extremity deep venous system. No intraluminal filling defects seen. IMPRESSION: No DVT in the left upper extremity.
--- NOTE | 2023-04-03 13:08 | EDPHYS ---
Physician Documentation [facility] Name: Karin Ayala Age: 73 yrs Sex: Female : 1950 Arrival Date: 04/03/2023 Time: 10:35 Bed 17 Private MD: ED Physician Harrison Abdalla HPI: 04/03 11:42 This 73 yrs old Female presents to ER via Ambulatory with complaints of arm Pain. rn 11:42 The patient or guardian complains of pain, that is acute, swelling. The complaints rn affect the Left arm. Onset: The symptoms/episode began/occurred 2 week(s) ago. Modifying factors: The symptoms are alleviated by nothing. the symptoms are aggravated by nothing. Severity of symptoms: At their worst the symptoms were moderate, in the emergency department the symptoms have improved. The patient has experienced similar episodes in the past. The patient has been recently seen by a physician:. Patient reports left arm swelling and pain for the last few weeks. Has been seen twice here for it, told of a left lung mass/cancer that is likely causing compressive symptoms. States had an ultrasound was negative for blood clot. Reports woke up this morning with slight discoloration that has now improved. Overall swelling is actually better than before. Has made an appointment with oncology and has a PET scan scheduled for tomorrow.. Historical: - Allergies: 10:49 No Known Allergies; db - Home Meds: 10:49 aspirin 81 mg oral tablet, delayed release (enteric coated) 1 tab daily [Active]; db - PMHx: 10:49 CVA (Shoulder); db - PSHx: 10:49 carpal tunnel surgery bilaterally; Shoulder; Right; db - Immunization history:: Adult Immunizations unknown, Client reports having NOT received the Covid vaccine. - Social history:: Smoking status: Patient reports the use of cigarette tobacco products, smokes one pack cigarettes per day. - Family history:: not pertinent. - Hospitalizations: : No recent hospitalization is reported. ROS: 11:42 Constitutional: Negative for fever, chills, and weight loss, Neck: Negative for injury, rn pain, and swelling, Cardiovascular: Negative for chest pain, palpitations, and edema, Respiratory: Negative for shortness of breath, cough, wheezing, and pleuritic chest pain, Abdomen/GI: Negative for abdominal pain, nausea, vomiting, diarrhea, and constipation, Back: Negative for injury and pain, MS/Extremity: Positive for left arm swelling and pain Skin: Negative for injury, rash Neuro: Negative for headache, weakness, numbness, tingling, and seizure, Exam: 11:42 Constitutional: This is a well developed, well nourished patient who is awake, alert, rn and in no acute distress. Neck: Trachea midline, no masses. No meningismus Cardiovascular: Regular rate and rhythm. No pulse deficits. Strong left radial pulse Respiratory: Speaking full sentences, unlabored. No increased work of breathing, no retractions or nasal flaring. MS/ Extremity: Pulses equal, no cyanosis. Neurovascular intact. Full, normal range of motion. Left distal arm with increased circumference and mild swelling compared to right arm. Worse distally. No skin discoloration or cyanosis. Neuro: Awake and alert, GCS 15, oriented to person, place, time, and situation. Cranial nerves II-XII grossly intact. Motor strength 5/5 in all extremities. Sensory grossly intact. Cerebellar exam normal. Normal gait. Vital Signs: 10:47 BP 175 / 83; Pulse 73; Resp 16; Temp 98.4; Pulse Ox 99% on R/A; Weight 53.98 kg; Height db 5 ft. 0 in. ; 12:00 BP 164 / 92; Pulse 82; Resp 16; Pulse Ox 97% on R/A; eh3 13:00 BP 177 / 86; Pulse 84; Resp 16; Pulse Ox 96% on R/A; eh3 10:47 Body Mass Index 23.24 (53.98 kg, 152.4 cm) db MDM: 10:40 Patient medically screened. rn 13:05 Differential diagnosis: DVT, compressive symptoms from left lung mass. Data reviewed: rn vital signs, nurses notes, radiologic studies, ultrasound, and as a result, I will discharge patient. Counseling: I had a detailed discussion with the patient and/or guardian regarding the historical points, exam findings, and any diagnostic results supporting the discharge/admit diagnosis, radiology results, the need for outpatient follow up, to return to the emergency department if symptoms worsen or persist or if there are any questions or concerns that arise at home. Special discussion: I discussed with the patient/guardian in detail that at this point there is no indication for admission to the hospital. It is understood, however, that if the symptoms persist or worsen the patient needs to return immediately for re-evaluation. ED course: No DVT on ultrasound. Strong radial pulse. No evidence of arterial occlusion. Most likely continued symptoms from left lung mass, history of smoking, possible cancer. Has PET scan canceled outpatient tomorrow. Will DC home with return precautions.. 04/03 12:08 Order name: UPPER EXTREMITY VENOUS UNILATE; Complete Time: 12:45 EDMS Administered Medications: No medications were administered Disposition Summary: 04/03/23 13:07 Discharge Ordered Notes: Location: Home rn Problem: an ongoing problem rn Symptoms: have improved rn Condition: Stable rn Diagnosis - Pain in left arm rn Followup: rn - With: Private Physician - When: As needed - Reason: Recheck today's complaints, Re-evaluation by your physician Discharge Instructions: - Discharge Summary Sheet rn - Musculoskeletal Pain rn - Lung Mass rn Forms: - Medication Reconciliation Form rn - Thank You Letter rn - Antibiotic journeyman welder - Prescription Opioid Use rn - Patient Portal Instructions rn - Leadership Thank You Letter rn Signatures: Dispatcher [employer] EDMS Harrison Abdalla MD MD rn Benton, Danielle, RN RN db Corrections: (The following items were deleted from the chart) 12:08 11:35 Extremity Venous [id number] ordered. EDMS EDMS
--- NOTE | 2023-04-03 13:08 | ER ---
Nurse's Notes [facility] Name: Karin Aylaa Age: 73 yrs Sex: Female : 1950 Arrival Date: 04/03/2023 Time: 10:35 Bed 17 Private MD: Diagnosis: Pain in left arm Presentation: 04/03 10:47 Chief complaint: Patient states: LEFT HAND PAIN AND SWELLING X 2 WEEKS. WORSE OVER LAST db 2 OR 3 DAYS. STATES IS TAKING ANTIBIOTICS FOR HAND SWELLING. PT STATES THIS AM NOTED LEFT HAND AND ARM IS A DIFFERENT COLOR. Coronavirus screen: Vaccine status: Patient reports being unvaccinated. Client denies travel out of the [place] in the last 14 days. At this time, the client does not indicate any symptoms associated with coronavirus-19. Ebola Screen: Patient negative for fever greater than or equal to 101.5 degrees Fahrenheit, and additional compatible Ebola Virus Disease symptoms Patient denies exposure to infectious person. Patient denies travel to an Ebola-affected area in the 21 days before illness onset. No symptoms or risks identified at this time. Initial Sepsis Screen: Does the patient meet any 2 criteria? No. Patient's initial sepsis screen is negative. Does the patient have a suspected source of infection? No. Patient's initial sepsis screen is negative. Risk Assessment: Do you want to hurt yourself or someone else? Patient reports no desire to harm self or others. Onset of symptoms was March 31, 2023. 10:47 Method Of Arrival: Ambulatory db 10:47 Acuity: RUDDY 3 db Triage Assessment: 10:49 General: Appears in no apparent distress. comfortable, Behavior is calm, cooperative. db Pain: Complains of pain in left hand. Neuro: Level of Consciousness is awake, alert, obeys commands, Oriented to person, place, time, situation. Respiratory: Airway is patent Respiratory effort is even, unlabored, Respiratory pattern is regular, symmetrical. Musculoskeletal: Circulation, motion, and sensation intact. Capillary refill < 3 seconds, Reports pain in left hand. Historical: - Allergies: 10:49 No Known Allergies; db - Home Meds: 10:49 aspirin 81 mg oral tablet, delayed release (enteric coated) 1 tab daily [Active]; db - PMHx: 10:49 CVA (Shoulder); db - PSHx: 10:49 carpal tunnel surgery bilaterally; Shoulder; Right; db - Immunization history:: Adult Immunizations unknown, Client reports having NOT received the Covid vaccine. - Social history:: Smoking status: Patient reports the use of cigarette tobacco products, smokes one pack cigarettes per day. - Family history:: not pertinent. - Hospitalizations: : No recent hospitalization is reported. Screenin:58 [facility] ED Fall Risk Assessment (Adult) Score/Fall Risk Level 0 - 2 = Low Risk. Abuse eh3 screen: Denies threats or abuse. Denies injuries from another. Nutritional screening: No deficits noted. Tuberculosis screening: No symptoms or risk factors identified. Assessment: 10:58 General: Appears in no apparent distress. uncomfortable, Behavior is cooperative, eh3 anxious. Pain: Complains of pain in left hand. Neuro: Level of Consciousness is awake, alert, obeys commands, Oriented to person, place, time, situation. Cardiovascular: Capillary refill < 3 seconds Patient's skin is warm and dry. Respiratory: Airway is patent Respiratory effort is even, unlabored, Respiratory pattern is regular, symmetrical. GI: Abdomen is round non-distended. Derm: Skin is pink, warm \T\ dry. Musculoskeletal: Circulation, motion, and sensation intact. Swelling present in left hand. 12:00 Reassessment: Patient appears in no apparent distress at this time. Patient and/or 3 family updated on plan of care and expected duration. Pain level reassessed. Patient is alert, oriented x 3, equal unlabored respirations, skin warm/dry/pink. 13:00 Reassessment: Patient appears in no apparent distress at this time. Patient and/or 3 family updated on plan of care and expected duration. Pain level reassessed. Patient is alert, oriented x 3, equal unlabored respirations, skin warm/dry/pink. Vital Signs: 10:47 BP 175 / 83; Pulse 73; Resp 16; Temp 98.4; Pulse Ox 99% on R/A; Weight 53.98 kg; Height db 5 ft. 0 in. ; 12:00 BP 164 / 92; Pulse 82; Resp 16; Pulse Ox 97% on R/A; eh3 13:00 BP 177 / 86; Pulse 84; Resp 16; Pulse Ox 96% on R/A; eh3 10:47 Body Mass Index 23.24 (53.98 kg, 152.4 cm) db ED Course: 10:37 Patient arrived in ED. mr 10:40 Harrison Abdalla MD is Attending Physician. rn 10:49 Triage completed. db 10:52 Arm band placed on Patient placed in an exam room. db 10:58 Patient has correct armband on for positive identification. Bed in low position. Call eh3 light in reach. Side rails up X2. Provided Education on: use of call marie. Pulse ox on. NIBP on. 11:18 Breanna Healy, RN is Primary Nurse. eh3 12:08 UPPER EXTREMITY VENOUS UNILATE In Process Unspecified. EDMS 13:35 No provider procedures requiring assistance completed. Patient did not have IV access eh3 during this emergency room visit. Administered Medications: No medications were administered Medication: 13:35 VIS not applicable for this client. eh3 Outcome: 13:07 Discharge ordered by . rn 13:37 Discharged to home ambulatory, eh3 13:37 Condition: stable 13:37 Discharge instructions given to patient, Instructed on discharge instructions, follow up and referral plans. Demonstrated understanding of instructions, follow-up care, 13:37 Patient left the ED. eh3 Signatures: Dispatcher [employer] EDAZ Reinaldo Bibi, Reg Reg mr Harrison Abdalla MD MD rn Hall, Erin, RN RN 3 Pretty Ordoñez RN RN db Corrections: (The following items were deleted from the chart) 10:53 10:47 Chief complaint: Patient states: LEFT HAND PAIN AND SWELLING X 2 WEEKS. WORSE db OVER LAST 2 OR 3 DAYS. STATES IS TAKING ANTIBIOTICS FOR HAND SWELLING. db
[2023-04-03 17:19] VITALS: TEMP 98.4
[2023-04-03 17:21] VITALS: BP 177/86; O2SAT 96
== END 2023-04-03 13:37 | disposition home or self-care (01) ==
LOC: ER 10:35
DX: M79.602 Pain in left arm (principal)
CPT/HCPCS: 93971; 99283

== ENCOUNTER 2023-05-03 06:28 | Day surgery (SDC) | payer OTHER ==
[2023-05-02 09:25] LABS: Potassium 3.6 mEq/L (3.5-5.1)
[2023-05-03] MEDS ORDERED: Ringers Lactate 1,000 ML IV ONE (06:58)
[2023-05-03] MEDS ORDERED: LIDOCAINE 2% MPF 5 ML VIAL ONE (07:22)
[2023-05-03] MEDS ORDERED: KETOROLAC 30 MG/ML INJ ONE (07:22)
[2023-05-03] MEDS ORDERED: FENTANYL CITR 100 MCG/2 ML ONE (07:22)
[2023-05-03] MEDS ORDERED: propofoL 200 MG/20 ML VIAL IV ONE (07:22)
[2023-05-03] MEDS ORDERED: ONDANSETRON 4 MG/2 ML VIAL ONE (07:22)
[2023-05-03] MEDS: CEFAZOLIN SODIUM 1 GM/VIAL ONE ×2 (07:37→08:01)
[2023-05-03] MEDS ORDERED: Phenylephrine HCl 10 MG/ML 1 ML VIAL ONE (08:01)
[2023-05-03] MEDS ORDERED: NS 0.9% VIAL 10 ML ONE (08:01)
[2023-05-03] MEDS: LIDOCAINE HCL/EPINEPHRINE 20 ML MDV ONE ×2 (08:02→08:07)
--- NOTE | 2023-05-03 08:37 | P.OP ---
Preoperative diagnosis: RIGHT Scalp Frontal Lesion Postoperative diagnosis: RIGHT Scalp Frontal Lesion Primary procedure: Skin Incision of RIGHT Frontal Scalp Lesion Secondary procedure: Primary Closure of skin incision Anesthesia: GETA + Local Estimated blood loss: <5cc Specimen: none Findings: Soft region of skull, procedure discontinued Complications: None (none immediate) Transferred to: Recovery Room Condition: Good
[2023-05-03 09:59] VITALS: BP 155/75; TEMP 98.2; O2SAT 95
--- NOTE | 2023-05-03 10:25 | OP ---
Date of Procedure: 05/03/2023 Surgeon: Prasad Tracey MD, Brief History Of Present Illness: The patient is a 73-year-old female, who has a recent diagnosis of lung cancer, likely metastatic to the lymph nodes, who presents with less than 2-week history of rig ht frontal scalp swelling. She explained that this lesion has been getting larger, more tender, more painful and rapidly growing. As such. She requested excision of this scalp cyst and she states she has had cysts like this before in her body which were sebaceous cyst in the past. She now requests removal of this 6 subcutaneous skin lesion. Preoperative Diagnosis: Right frontal scalp skin lesion. Postoperative Diagnosis: Right frontal scalp skin lesion. Procedure Performed: Incision and exploration of the right frontal scalp lesion and primary closure of the skin lesion. Anesthesia: General endotracheal with local with 1% lidocaine with epinephrine. Estimated Blood Loss: 5 cc. Specimen: None. Findings: There was a soft region in the skull and therefore the procedure was discontinued. Complications: None immediate. Disposition: Patient transferred to recovery room in good condition. Procedure In Detail: After informed consent was obtained, the patient was prepped and draped in the usual sterile fashion. After adequate anesthesia was achieved, I made a linear incision near the top of the hairline away from the most large and bulbous aspect of this approximately 5 cm x 4 cm scalp cyst. This scalp cyst was significantly larger than when I saw her in clinic recently. It has incre ased in size by approximately 20 to 30 percent since that time. It is more tender and there is no re dness, but increased tenderness in this region. I made an incision down to subcutaneous tissues usin g a 15 blade and then used electrocautery to enter the subcutaneous tissues. I then performed digita l palpation of the area ultimately the skin from the cyst-like structure. As I palpated t he region around, I felt what appeared to be a soft spot in the bone inferior to the medial aspect of this cyst-like structure. I did not violate any tissue planes other than the subcutaneous tissue pl ane. I the area with digital pressure only. At this point, because I felt a soft possibly lytic lesion in the skull bone, I decided to not perform any removal of any tissue at this point or violate any additional tissue planes, as I was concerned about the possibility of this being metastat ic focus and it could have some communication with the intracranial vault and as such, I decided to a bandon the procedure at this point. I irrigated the area. Hemostasis was easily achieved with the s ubcutaneous area distracting this from the cyst-like structure using minimal electrocautery. The are a was irrigated once again. After good hemostasis was achieved, I simply closed the skin with simple interrupted 3-0 nylon sutures and a sterile dressing was placed over top. The cyst remained in plac e. There was no bleeding at the end the procedure, no additional maneuvers. Patient tolerated the p rocedure well without incident or complication, transferred to PACU in good condition. A CT scan of the head will be performed to better evaluate this area. All counts were correct at the end of the c ase. CATHY/LAURA Voice ID: [id number] Report ID: [id number]
== END 2023-05-03 10:52 | disposition home or self-care (01) ==
LOC: OR 06:28
PROVIDERS: ATTEND Surgery
PROC: 0JB00ZZ Excision of Scalp Subcutaneous Tissue and Fascia, Open Approach (ICD-10-PCS; principal; 2023-05-03 08:00)
DX: L98.9 Disorder of the skin and subcutaneous tissue, unspecified (principal); I89.0 Lymphedema, not elsewhere classified; C34.90 Malignant neoplasm of unspecified part of unspecified bronchus or lung
CPT/HCPCS: 80048; 36415; 11426; A4216; J2704; J2371; J2001; J3010; J2405; J7120; J0690

== ENCOUNTER → 2023-07-06 | Emergency (ER) | payer OTHER ==
[~2023-07-06] MED LIST: KCL 20 MEQ/100 mL IVPB 100 ML IV ONE; MORPHINE 4 MG/ML SYR ONE; NA CHLORIDE 0.9% 1,000 ML ONE; POTASSIUM 25 MEQ EFFERV TAB ONE
--- OUTSIDE RECORDS SUMMARY | 2023-07-06 18:54 | XMS REPORT | Continuity of Care Document ---
Author Name Unknown Address [address] [place] [address] [facility] Address [address] [place] [address] Care Team Providers Care Process Analyst Name Role Phone Shubham Shaffer Attending Clinician Unavailable Problems Condition Name Condition Details Condition Category Status Onset Date Resolution Date Last Treatment Date Treating Clinician Comments Source [id number] Lymphedema of left arm Problem [facility] [id number] Smoker Problem [facility] Social History Social Habit Start Date Stop Date Quantity Comments Source History of Tobacco Use Current Smoker [facility] Sex Assigned At [facility] Smoking Status Start Date Stop Date Source Current Smoker 2023-04-19 00:00:00 [facility] Medications Ordered Medication Name Filled Medication Name Start Date Stop Date Current Medication? Ordering Clinician Indication Dosage Frequency Signature (SIG) Comments Components Source No Known Medications No Known Medications No [facility] No Known Medications No Known Medications No [facility] Vital Signs Vital Name Observation Time Observation Value Comments S ource height 2023-04-23 10:40:00 60 [in_i] Commo n [facility] weight 2023-04-23 10:40:00 114.2 [lb_av] Co mmon [facility] temperature 2023-04-23 10:40:00 97.8 [degF] Com mon [facility] bmi 2023-04-23 10:40:00 22.3 kg/m2 Commo n [facility] oximetry 2023-04-23 10:40:00 92 % Commo n [facility] respiratory rate 2023-04-23 10:40:00 16 /min [facility] blood pressure systolic 2023-04-23 10:40:00 122 mm[Hg] [facility] blood pressure diastolic 2023-04-23 10:40:00 68 mm[Hg] [facility] height 2023-03-27 11:00:00 60 [in_i] Commo n [facility] weight 2023-03-27 11:00:00 119 [lb_av] Comm on [facility] temperature 2023-03-27 11:00:00 98.5 [degF] Com mon [facility] bmi 2023-03-27 11:00:00 23.24 kg/m2 Comm on [facility] oximetry 2023-03-27 11:00:00 96 % Commo n [facility] respiratory rate 2023-03-27 11:00:00 16 /min [facility] blood pressure systolic 2023-03-27 11:00:00 140 mm[Hg] [facility] blood pressure diastolic 2023-03-27 11:00:00 80 mm[Hg] [facility] Encounters Start Date/Time End Date/Time Encounter Type Admission Type Attending Clinicians Care Facility Care Department Encounter ID Source 2023-04-23 10:12:00 Outpatient Shubham Shaffer [facility] [id number] [facility] 2023-04-08 08:18:00 Outpatient Shaffer Shubham [facility] [id number] [facility] 2023-03-27 09:53:01 Outpatient Shaffer Shubham [facility] [id number] [facility] 2023-04-25 00:00:00 2023-04-25 00:00:00 (TEL) [facility] [id number] [facility] 2023-04-23 00:00:00 2023-04-23 00:00:00 OFFICE VISIT ESTAB PT LEVEL 4 [facility] [id number] [facility] 2023-04-08 00:00:00 2023-04-08 00:00:00 (TEL) [facility] [id number] [facility] 2023-03-29 00:00:00 2023-03-29 00:00:00 (TEL) [facility] [id number] [facility] 2023-03-27 00:00:00 2023-03-27 00:00:00 OFFICE VISIT NEW PT LEVEL 4 [facility] [id number] [facility]
[2023-07-06 20:06] LABS: Absolute Basophils 0.1 K/uL (0-0.5); Absolute Lymphocytes (CBC) 0.8 K/uL (0.7-4.9); Basophils % 0.7 % (0-1.3); Eosinophils % 0.1 % (0-4.4); Hematocrit 30.5 % (36.0-45.0); Lymphocytes % 4.5 % (15.3-44.8); MCV 79.9 fL (80-100); Platelets 487 thou/uL (152-406); RBC Red Blood Cell Count 3.82 M/uL (3.86-4.86)
[2023-07-06 20:23] LABS: Anion Gap 9.3 mEq/L (5.0-15.0)
[2023-07-06 20:28] LABS: Potassium 2.3 mEq/L (3.5-5.1)
[2023-07-06 21:30] LABS: Specific Gravity 1.017 (1.005-1.030); Urine Bacteria None Seen /HPF (<20); Urine Bilirubin NEGATIVE (Negative); Urine Blood Negative (Negative); Urine Clarity Turbid (Clear); Urine Color Yellow (Yellow); Urine Glucose NEGATIVE (Negative); Urine Mucus Slight /HPF (None Seen); Urine Protein 1+ (Negative); Urine RBC <5 /HPF (None Seen); Urine Urobilinogen Normal (Normal)
[2023-07-06 21:30] LABS: Anisocytosis 1+; Blood Morphology Comment NOTED (NOT SEEN); Platelet Estimate INCR; White Blood Cell Scan OK (OK)
[2023-07-06 21:31] LABS: Poikilocytosis 1+
--- NOTE | 2023-07-06 21:58 | EDPHYS ---
Physician Documentation [facility] Name: Karin Ayala Age: 73 yrs Sex: Female : 1950 Arrival Date: 07/06/2023 Time: 18:51 Bed 7 Private MD: ED Physician Jose Davis HPI: 07/05 19:25 This 73 yrs old Female presents to ER via Wheelchair with complaints of Weakness, Pain ms3 All Over. 19:25 . ms3 19:32 73-year-old female with past medical history of CVA, stage IV cancer currently on ms3 hospice presents for generalized pain and weakness. Patient feels hospice is not serving her well at this time. Patient states she has morphine at home and has not taken it. Patient's son is concerned patient may be dehydrated. Historical: - Allergies: 19:12 No Known Allergies; as6 - PMHx: 19:12 CVA (Shoulder); as6 - PSHx: 19:12 carpal tunnel surgery bilaterally; Shoulder; Right; as6 - Immunization history:: Adult Immunizations up to date. - Social history:: Smoking status: Patient/guardian denies using tobacco. ROS: 19:32 Constitutional: Negative for fever, and chills. Neck: Negative for injury, pain, and ms3 swelling, Cardiovascular: Negative for chest pain, and palpitations. Respiratory: Negative for shortness of breath, cough, wheezing, and pleuritic chest pain, 19:32 MS/Extremity: Negative for injury and deformity, Skin: Negative for injury, rash, and discoloration, 19:32 Abdomen/GI: Positive for abdominal pain, Exam: 19:32 Constitutional: This is a well developed, well nourished patient who is awake, alert, ms3 and in no acute distress. Head/Face: Normocephalic, atraumatic. Neck: Trachea midline, no cervical lymphadenopathy. Supple, full range of motion without nuchal rigidity, or vertebral point tenderness. No Meningismus. Chest/axilla: Normal chest wall appearance and motion. Nontender with no deformity. Cardiovascular: Regular rate and rhythm with a normal S1 and S2. No gallops, murmurs, or rubs. Normal PMI, no JVD. No pulse deficits. Respiratory: Lungs have equal breath sounds bilaterally, clear to auscultation and percussion. No rales, rhonchi or wheezes noted. No increased work of breathing, no retractions or nasal flaring. Abdomen/GI: Soft, non-tender, with normal bowel sounds. No distension or tympany. No guarding or rebound. No evidence of tenderness throughout. 19:36 Skin: Ulceration right forehead, ulceration LLQ abdomen. ms3 Vital Signs: 19:12 BP 161 / 78; Pulse 91; Resp 16 S; Temp 97.7(O); Pulse Ox 96% on R/A; Weight 36.29 kg; as6 Height 5 ft. 0 in. ; Pain 10/10; 20:24 BP 164 / 68; Pulse 80; Pulse Ox 96% on R/A; Pain 0/10; tm6 21:15 BP 174 / 79; Pulse 79; Resp 18; Pain 0/10; tm6 21:44 BP 146 / 70; Pulse 78; Resp 16; Pulse Ox 96% on R/A; km8 22:39 BP 156 / 67; Pulse 84; Pulse Ox 96% on R/A; Pain 0/10; tm6 23:31 BP 132 / 61; Pulse 81; Resp 16; Temp 98.2(TE); Pulse Ox 96% on R/A; Pain 0/10; tm6 19:12 Body Mass Index 15.62 (36.29 kg, 152.4 cm) as6 19:12 Pain Scale: Adult as6 20:24 Pain Scale: Adult tm6 21:15 Pain Scale: Adult tm6 22:39 Pain Scale: Adult tm6 23:31 Pain Scale: Adult tm6 MDM: 19:18 Patient medically screened. ms3 21:59 Data reviewed: vital signs, nurses notes, lab test result(s), and as a result, I will ms3 discharge patient. Management of patient was discussed with the following: Hospice Physician, Dr Rudolph. Discussed labs with him. Discussed case with Kizzy, Hospice nurse and she is aware patient will be going home.. I considered the following discharge prescriptions or medication management in the emergency department Medications were administered in the Emergency Department. See MAR. Historians other than the Patient: Daughter/Son: Patient's son. Care significantly affected by the following chronic conditions: Cancer. Counseling: I had a detailed discussion with the patient and/or guardian regarding the historical points, exam findings, and any diagnostic results supporting the discharge/admit diagnosis, lab results, the need for outpatient follow up, to return to the emergency department if symptoms worsen or persist or if there are any questions or concerns that arise at home. Special discussion: I discussed with the patient/guardian in detail that at this point there is no indication for admission to the hospital. It is understood, however, that if the symptoms persist or worsen the patient needs to return immediately for re-evaluation. ED course: Discussed labs with patient and her son. Discussed with the patient her son necessity to take morphine for pain as prescribed. Patient's son states patient was afraid to take the medication. Case discussed with Dr. Rudolph, hospice physician and patient's hospice nurse, Kizzy. All questions were answered. Return precautions discussed including any worsening symptoms or concerns.. 07/05 19:18 Order name: CBC with Diff; Complete Time: 21:35 ms3 07/05 19:18 Order name: BMP; Complete Time: 20:30 ms3 07/05 20:40 Order name: Urinalysis w/ reflexes; Complete Time: 21:35 ms3 07/05 21:31 Order name: CBC Smear Scan; Complete Time: 21:35 EDMS 07/05 21:33 Order name: Urine Culture EDMS Administered Medications: 19:53 Drug: morphine IVP or IV 4 mg IVP once over 4 mins Route: IVP; Infused Over: 4 mins; tm6 Site: right antecubital; 19:53 Drug: NS 0.9% IV 1000 ml IV at 1 bolus Per protocol; 1000 mL bolus Route: IV; Rate: 1 tm6 bolus; Site: right antecubital; 22:40 Follow up: Response: No adverse reaction; IV Status: Completed infusion; IV Intake: tm6 1000ml 20:47 Drug: Potassium PO Effervescent Tablet 50 mEq PO once; dissolve in 4 ounces of water or tm6 juice Route: PO; 20:47 Drug: Potassium Chloride IV 20 mEq IV at calculated rate once; administer over 1-2 tm6 hours Route: IV; Rate: calculated rate; Site: right antecubital; 23:31 Follow up: IV Status: Completed infusion tm6 Disposition Summary: 07/06/23 21:58 Discharge Ordered Notes: Location: Home ms3 Condition: Stable ms3 Diagnosis - Hypokalemia ms3 - Hypercalcemia ms3 - Metastatic cancer ms3 - Anemia, unspecified ms3 - Leukocytosis ms3 Followup: ms3 - With: Private Physician - When: 1 - 2 days - Reason: Recheck today's complaints Discharge Instructions: - Discharge Summary Sheet ms3 - Anemia ms3 - Potassium Content of Foods ms3 - Hypercalcemia ms3 - Hypokalemia ms3 Forms: - Medication Reconciliation Form ms3 - Thank You Letter ms3 - Antibiotic Education ms3 - Prescription Opioid Use ms3 - Patient Portal Instructions ms3 - Leadership Thank You Letter ms3 Critical care time excluding procedures: 21:59 Critical care time: Bedside Care: 30 minutes, Consultation: 5 minutes, Family ms3 Intervention: 10 minutes. Total time: 45 minutes Signatures: Dispatcher [employer] EDJose So DO DO ms3 Faraz Booker RN RN as6 Leatha Villagran RN RN tm6 Corrections: (The following items were deleted from the chart) 19:36 19:32 Constitutional: This is a well developed, well nourished patient who is awake, ms3 alert, and in no acute distress. Head/Face: Normocephalic, atraumatic. Neck: Trachea midline, no cervical lymphadenopathy. Supple, full range of motion without nuchal rigidity, or vertebral point tenderness. No Meningismus. Chest/axilla: Normal chest wall appearance and motion. Nontender with no deformity. Cardiovascular: Regular rate and rhythm with a normal S1 and S2. No gallops, murmurs, or rubs. Normal PMI, no JVD. No pulse deficits. Respiratory: Lungs have equal breath sounds bilaterally, clear to auscultation and percussion. No rales, rhonchi or wheezes noted. No increased work of breathing, no retractions or nasal flaring. Abdomen/GI: Soft, non-tender, with normal bowel sounds. No distension or tympany. No guarding or rebound. No evidence of tenderness throughout. ms3 19:53 19:18 Urinalysis+U.LAB.BRZ ordered. EDMS EDMS
--- NOTE | 2023-07-06 21:58 | ER ---
Nurse's Notes [facility] Name: Karin Ayala Age: 73 yrs Sex: Female : 1950 Arrival Date: 07/06/2023 Time: 18:51 Bed 7 Private MD: Diagnosis: Hypokalemia;Hypercalcemia;Metastatic cancer;Anemia, unspecified;Leukocytosis Presentation: 07/05 19:12 Chief complaint: Patient's son or daughter states: c/o weakness and generalized pain. as6 pt has dx of terminal stage 4 metastatic cancer. pt was on hospice and son revoked hospice due to him thinking they weren't doing anything for her. Coronavirus screen: At this time, the client does not indicate any symptoms associated with coronavirus-19. Ebola Screen: No symptoms or risks identified at this time. Initial Sepsis Screen: Does the patient meet any 2 criteria? No. Patient's initial sepsis screen is negative. Does the patient have a suspected source of infection? No. Patient's initial sepsis screen is negative. Risk Assessment: Do you want to hurt yourself or someone else? Patient reports no desire to harm self or others. Onset of symptoms was July 06, 2023. 19:12 Method Of Arrival: Wheelchair as6 19:12 Acuity: RUDDY 3 as6 Triage Assessment: 19:14 General: Appears ill, slender, Behavior is calm, cooperative. Pain: Complains of pain as6 in generalized. Historical: - Allergies: 19:12 No Known Allergies; as6 - PMHx: 19:12 CVA (Shoulder); as6 - PSHx: 19:12 carpal tunnel surgery bilaterally; Shoulder; Right; as6 - Immunization history:: Adult Immunizations up to date. - Social history:: Smoking status: Patient/guardian denies using tobacco. Screenin:41 [facility] ED Fall Risk Assessment (Adult) History of falling in the last 3 months, tm6 including since admission No falls in past 3 months (0 pts) Confusion or Disorientation Yes (5 pts) Intoxicated or Sedated No (0 pts) Impaired Gait Yes (1 pt) Mobility Assist Device Used Yes (1 pt) Altered Elimination Yes (1 pt) Score/Fall Risk Level 3 or more points = High Risk Oriented to surroundings, Maintained a safe environment. Abuse screen: Denies threats or abuse. Denies injuries from another. Nutritional screening: No deficits noted. Tuberculosis screening: No symptoms or risk factors identified. Assessment: 19:41 General: Appears in no apparent distress. ill, Behavior is calm, cooperative. Pain: tm6 Complains of pain in generalized pain. Neuro: Neuro: Level of Consciousness is awake, alert, obeys commands, Oriented to person, place, time, situation, intermittent orientation. Cardiovascular: Patient's skin is warm and dry. Respiratory: Airway is patent Respiratory effort is even, unlabored, Respiratory pattern is regular, symmetrical. GI: Abdomen is flat, non-distended. : No signs and/or symptoms were reported regarding the genitourinary system. EENT: No signs and/or symptoms were reported regarding the EENT system. Derm: Parent/caregiver reports the patient having wounds from cancer. Musculoskeletal: Reports generalized weakness. 20:24 Reassessment: Patient and/or family updated on plan of care and expected duration. Pain tm6 level reassessed. Patient is alert, oriented x 3, equal unlabored respirations, skin warm/dry/pink. 21:15 Reassessment: Patient and/or family updated on plan of care and expected duration. Pain tm6 level reassessed. Patient is alert, oriented x 3, equal unlabored respirations, skin warm/dry/pink. 22:09 Reassessment: waiting for Potassium Chloride IV infusion to complete before discharge. km8 22:39 Reassessment: Patient and/or family updated on plan of care and expected duration. Pain tm6 level reassessed. Patient is alert, oriented x 3, equal unlabored respirations, skin warm/dry/pink. 23:31 Reassessment: Patient appears in no apparent distress at this time. tm6 Vital Signs: 19:12 BP 161 / 78; Pulse 91; Resp 16 S; Temp 97.7(O); Pulse Ox 96% on R/A; Weight 36.29 kg; as6 Height 5 ft. 0 in. ; Pain 10/10; 20:24 BP 164 / 68; Pulse 80; Pulse Ox 96% on R/A; Pain 0/10; tm6 21:15 BP 174 / 79; Pulse 79; Resp 18; Pain 0/10; tm6 21:44 BP 146 / 70; Pulse 78; Resp 16; Pulse Ox 96% on R/A; km8 22:39 BP 156 / 67; Pulse 84; Pulse Ox 96% on R/A; Pain 0/10; tm6 23:31 BP 132 / 61; Pulse 81; Resp 16; Temp 98.2(TE); Pulse Ox 96% on R/A; Pain 0/10; tm6 19:12 Body Mass Index 15.62 (36.29 kg, 152.4 cm) as6 19:12 Pain Scale: Adult as6 20:24 Pain Scale: Adult tm6 21:15 Pain Scale: Adult tm6 22:39 Pain Scale: Adult tm6 23:31 Pain Scale: Adult tm6 ED Course: 18:52 Patient arrived in ED. ra3 19:04 Jose Davis DO is Attending Physician. ms3 19:12 Arm band placed on. as6 19:14 Triage completed. as6 19:41 Patient has correct armband on for positive identification. Placed in gown. Bed in low tm6 position. Call light in reach. Side rails up X2. Provided Education on: plan of care, use of call marie. Client placed on continuous cardiac and pulse oximetry monitoring. NIBP monitoring applied. phototypesetting equipment monitor on. Pulse ox on. NIBP on. Door closed. Noise minimized. Warm blanket given. 19:45 Inserted saline lock: 22 gauge in right antecubital area, using aseptic technique. oe Blood collected. 19:53 BMP Sent. tm6 19:53 CBC with Diff Sent. tm6 20:31 Leatha Villagran, RN is Primary Nurse. tm6 21:14 One-on-one care X 30 minutes. tm6 21:14 Urinalysis w/ reflexes Sent. tm6 21:14 Urine collected: straight cath specimen, clear, Amount Returned: 75mL. tm6 22:40 Urine Culture Sent. tm6 23:31 No provider procedures requiring assistance completed. IV discontinued, intact, tm6 bleeding controlled, No redness/swelling at site. Pressure dressing applied. Administered Medications: 19:53 Drug: morphine IVP or IV 4 mg IVP once over 4 mins Route: IVP; Infused Over: 4 mins; tm6 Site: right antecubital; 19:53 Drug: NS 0.9% IV 1000 ml IV at 1 bolus Per protocol; 1000 mL bolus Route: IV; Rate: 1 tm6 bolus; Site: right antecubital; 22:40 Follow up: Response: No adverse reaction; IV Status: Completed infusion; IV Intake: tm6 1000ml 20:47 Drug: Potassium PO Effervescent Tablet 50 mEq PO once; dissolve in 4 ounces of water or tm6 juice Route: PO; 20:47 Drug: Potassium Chloride IV 20 mEq IV at calculated rate once; administer over 1-2 tm6 hours Route: IV; Rate: calculated rate; Site: right antecubital; 23:31 Follow up: IV Status: Completed infusion tm6 Medication: 19:41 VIS not applicable for this client. tm6 Intake: 22:40 IV: 1000ml; Total: 1000ml. tm6 Outcome: 21:58 Discharge ordered by MD. ms3 23:31 Discharged to home via wheelchair, with family, tm6 23:31 Condition: stable 23:31 Discharge instructions given to patient, family, Instructed on discharge instructions, follow up and referral plans. Demonstrated understanding of instructions, follow-up care, 23:32 Patient left the ED. tm6 Signatures: Randy Hernandez Marcus, DO ms3 Faraz Booker, RN RN as6 Rowan Mandel, LEVAR RN km8 Leatha Villagran RN RN tm6 Sienna Hough ra3 Corrections: (The following items were deleted from the chart) 19:53 19:53 Urinalysis+U.LAB.BRZ drawn and sent. tm6 EDMS
[2023-07-06 23:58] VITALS: BP 132/61; TEMP 98.2; O2SAT 96
== END ==
LOC: ER 18:51
DX: E87.6 Hypokalemia (principal); E83.52 Hypercalcemia; D64.9 Anemia, unspecified; D72.829 Elevated white blood cell count, unspecified; C79.9 Secondary malignant neoplasm of unspecified site; Z86.73 Personal history of transient ischemic attack (TIA), and cerebral infarction without residual deficits
CPT/HCPCS: 87088; 85025; 81001; 87086; 80048; 36415; J3480; J7030; 96361; 96365; 96366; 96375; 99285